=== PATIENT | male | born 1965 | race Caucasian/White ===

== ENCOUNTER 2021-08-06 00:37 | Day surgery (SDC) | payer MEDICARE, SELFPAY ==
[2021-08-05 11:18] VITALS: BMI 27.5
--- NOTE | 2021-08-06 07:10 | P.PNAN_ITS ---
Anes - Initial Pre Proc Eval Procedure: Operation Date: 08/06/21 10:30 Proposed Procedures p Colonoscopy - Andrés Larson MD Date/Time: 08/06/21 07:10 Surgeon: Andrés Larson MD Pre Op Diagnosis: positive cologuard Patient Data Age: 56 Gender: M Height: 1.78 m Weight: 87 kg Allergies Allergy/AdvReac Type Severity Reaction Status Date / Time No Known Allergies Allergy Verified 08/06/21 09:27 Home Medications Medication Instructions Recorded Confirmed Type carbamide peroxide 6.5 % ear drops 4 drp EACH EAR DAILY PRN 06/08/21 08/04/21 History ethosuximide 250 mg capsule 250 mg PO BID 06/08/21 08/04/21 History multivit,Ca,min-iron 8 mg-folic 1 tablet PO DAILY tablet 06/08/21 08/04/21 History acid 200 mcg-lycopene 600 mcg tablet phenytoin sodium extended 100 mg 100 mg PO BID cap 06/08/21 08/04/21 History capsule metoprolol succinate 25 mg 25 mg PO DAILY #90 tablet 07/29/21 08/04/21 Rx tablet,extended release 24 hr acetaminophen [Mapap 650 mg PO Q6H PRN 08/04/21 08/04/21 History (acetaminophen)] calcium carbonate [Oyster Shell 500 mg PO DAILY 08/04/21 08/04/21 History Calcium 500] dicyclomine 20 mg PO QID 08/04/21 08/04/21 History loperamide 2 mg PO BID PRN 08/04/21 08/04/21 History phenobarbital 32.4 mg PO HS MDD seizure 08/04/21 08/04/21 History Patient hx anesthesia problems: none Family hx anesthesia problems: none Results Review: All pre-operative results and documents have been reviewed as part of the pre-operative evaluation. [facility] Past Medical History Medical History (Updated 07/30/21 @ 10:08 by Radha Rees NP) Cerebral palsy Hip fracture, left Left spastic hemiparesis Seizure disorder Tachycardia Surgical History Surgical History (Updated 07/29/21 @ 23:52 by Adwoa Ramirez MD) Hx of colonoscopy 2019, repeat in 10 years S/P total hip arthroplasty Social History Social History (Updated 07/29/21 @ 14:12 by Radha Valdes Social History: Single Smoking status: Unknown if ever smoked Second hand tobacco smoke exposure: No Alcohol intake: never Substance use: never Substance use type: does not use Living arrangements: assisted living Gender identity (if verbalized by the patient): Male Sexual Orientation (if Verbalized by the Patient): Straight or Heterosexual Spiritual care concerns: No Anes - Eval Final PreProcedure Day of Procedure 08/06/21 07:10 Patient weight: overweight Heart: regular rate and rhythm Lungs: clear to auscultation and normal air movement Airway: Mallampati scale class II Neurological: alert and oriented Last oral intake: >/= 8 hours ASA classification: III Emergent: no Anesthetic plan: proceed Anesthesia type and monitoring: general GIVS and standard monitoring Results Review: All pre-operative results and documents have been reviewed as part of the pre-operative evaluation. Informed Consent: The patient's anesthetic plan and its attendant risks and benefits were discussed with the patient/family/POA. Questions were solicited and answers provided to the satisfaction of the patient/family/POA.
[2021-08-06] MEDS: LACTATED RINGERS 1,000 ML 150 ML IV CONT (09:22)
[2021-08-06 09:29] VITALS: BP 117/85; PULSE 92; RESP 18; TEMP 36.6; O2SAT 97
--- NOTE | 2021-08-06 09:29 | WPDGICN ---
Assessment and Plan Assessment and plan (1) Positive colorectal cancer screening using Cologuard test: Code(s): R19.5 - Other fecal abnormalities Status: Acute Assessment and Plan: Patient with a recent Cologuard test that was positive. Plan to proceed with colonoscopy because of this. Further recommendations will be given after endoscopy. (2) Left spastic hemiparesis: Code(s): G81.14 - Spastic hemiplegia affecting left nondominant side Status: Acute (3) Cerebral palsy: Qualifiers: Cerebral palsy type: spastic hemiplegic Qualified Code(s): G80.2 - Spastic hemiplegic cerebral palsy Code(s): G80.9 - Cerebral palsy, unspecified Status: Acute GI Consult Note Consult date/time: 08/06/21 09:29 HPI: Luisito Peraza is a 56 year old male Presents for screening colonoscopy. Patient was recently found to have positive Cologuard test. Patient does have a past medical history of cerebral palsy. He has underlying spastic hemiparesis. Patient is unable to give a good history. He does have an underlying seizure disorder as well. Patient had a colonoscopy previously 2014 felt to be unremarkable. He has had a previous hip arthroplasty. Review of Systems Review of Systems: ROS unobtainable: Yes unobtainable due to medical condition PMFSH Past Medical History Medical History (Updated 07/30/21 @ 10:08 by Radha Rees NP) Cerebral palsy Hip fracture, left Left spastic hemiparesis Seizure disorder Tachycardia Surgical History Surgical History (Updated 07/29/21 @ 23:52 by Adwoa Ramirez MD) Hx of colonoscopy 2019, repeat in 10 years S/P total hip arthroplasty Social History Social History (Updated 07/29/21 @ 14:12 by Radha Muniz) Social History: Single Smoking status: Unknown if ever smoked Second hand tobacco smoke exposure: No Alcohol intake: never Substance use: never Substance use type: does not use Living arrangements: assisted living Gender identity (if verbalized by the patient): Male Sexual Orientation (if Verbalized by the Patient): Straight or Heterosexual Spiritual care concerns: No Meds Home Medications and Allergies Home Medications Medication Instructions Recorded Confirmed Type carbamide peroxide 6.5 % ear drops 4 drp EACH EAR DAILY PRN 06/08/21 08/06/21 History ethosuximide 250 mg capsule 250 mg PO BID 06/08/21 08/06/21 History multivit,Ca,min-iron 8 mg-folic 1 tablet PO DAILY tablet 06/08/21 08/06/21 History acid 200 mcg-lycopene 600 mcg tablet phenytoin sodium extended 100 mg 100 mg PO BID cap 06/08/21 08/06/21 History capsule metoprolol succinate 25 mg 25 mg PO DAILY #90 tablet 07/29/21 08/06/21 Rx tablet,extended release 24 hr acetaminophen [Mapap 650 mg PO Q6H PRN 08/04/21 08/06/21 History (acetaminophen)] calcium carbonate [Oyster Shell 500 mg PO DAILY 08/04/21 08/06/21 History Calcium 500] dicyclomine 20 mg PO QID 08/04/21 08/06/21 History loperamide 2 mg PO BID PRN 08/04/21 08/06/21 History phenobarbital 32.4 mg PO HS MDD seizure 08/04/21 08/06/21 History Allergies Allergy/AdvReac Type Severity Reaction Status Date / Time No Known Allergies Allergy Verified 08/06/21 09:27 Exam Narrative: Physical exam reveals patient be alert not well oriented unable to give significant history. Vital signs are stable. HEENT exam reveals no icterus. Lungs are clear to auscultation and percussion. Heart is without murmur or extra sounds. Abdomen bowel sounds are present soft nontender with no organomegaly. Digital external rectal exam is normal.
[2021-08-06 10:20] VITALS: BP 109/74; PULSE 69; RESP 17; O2SAT 98
[2021-08-06 10:30] VITALS: BP 115/80; PULSE 87; RESP 18; O2SAT 100
[2021-08-06 10:40] VITALS: BP 124/82; PULSE 86; RESP 23; O2SAT 100
== END 2021-08-06 11:15 ==
PROVIDERS: PCP Family Medicine; Visit Provider Internal Medicine Gastroenterology
PROC: 0DJD8ZZ Inspection of Lower Intestinal Tract, Via Natural or Artificial Opening Endoscopic (ICD-10-PCS; CPT 45378; principal; 2021-08-06 10:30)
DX: R19.5 Other fecal abnormalities (principal); K63.5 Polyp of colon; G80.2 Spastic hemiplegic cerebral palsy; G40.909 Epilepsy, unspecified, not intractable, without status epilepticus
CPT/HCPCS: 45385; 88305; J2704; J7120

== ENCOUNTER 2025-01-05 09:46 | Emergency (ER) | payer MEDICARE, MEDICAID, SELFPAY ==
--- NOTE | ~2025-01-05 | XR_ITS ---
AP and lateral views of the sacrum/coccyx CLINICAL HISTORY: Pain FINDINGS: Moderate L3 compression fracture noted. No other fracture or dislocation seen. Right hip brian int space intact. Left hip arthroplasty in place. Soft tissues are unremarkable. SI joints are intact . IMPRESSION: Moderate L3 compression fracture, age-indeterminate. No other fracture or dislocation. Reviewed, dictated and finalized at [facility].
--- OUTSIDE RECORDS SUMMARY | 2025-01-05 09:49 | XMS_ITS | Clinical Summary ---
Author Organization [facility] Address [address] [place] [address] Phone Care Team Providers Care Client Solutions Director Name Role Phone Marbella Cooper APRN, CHARLIE Primary Care P rovider Allergies No known active allergies Medications acetaminophen (TYLENOL) 325 MG Tablet Take 650 mg by mouth. Active ethosuximide (ZARONTIN) 250 MG Capsule 3 Active metoprolol Succinate (TOPROL-XL) 25 MG TABLET SR 24 HR 3 Active Centrum Silver 50+Men Tablet 3 Active phenytoin (DILANTIN) 100 MG ER capsule 3 Active Probiotic Product (TruBiotics) Capsule 2 Active dicyclomine (BENTYL) 20 MG TabletIndications :Irritable bowel syndrome with diarrhea Take 1 Tablet by mouth 3 times daily. Dose at 0700, 1700 and 2100 270 Tablet 3 3 Active calcium oyster shell 500 MG Tablet TAKE (1) TABLET BY MOUTH DAILY. 7AM 90 Tablet 3 3 Active ofloxacin (FLOXIN) 0.3 % Solution Place 5 Drops in affected ear(s). 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 30 Tablet 5 5 Active doxycycline hyclate (VIBRAMYCIN) 100 MG Capsule Take 1 Capsule by mouth 2 times daily for 10 days. 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 undetermined as to focal or generalized 01/14/2021 Encounters Date Type Department Care Team Description 12/12/2024 10:30 AM CDT Office Visit [facility] [place] [address] [place] [phone] Brian Siegel, SAIDA Recurrent falls while walking (Primary Dx); Epilepsy undetermined as to focal or generalized (HCC); Chronic tympanomastoiditis, unspecified laterality; Abscess of back Discharge Disposition: Discharged to home or Selfcare 12/11/2024 9:28 AM CDT - 12/11/2024 1:50 PM CDT [facility] [address] [place] [address] Suman Araiza MD Weakness Discharge Disposition: Discharged to home or Selfcare 12/11/2024 Travel 10/17/2024 [facility] [address] [place] [phone] Marbella Cooper APRN, NASCAR DRIVER Referral 10/16/2024 Refill [facility] [place] [address] [place] [address] Ludwin Pena MD 10/16/2024 Telephone [facility] [address] [place] [address] [phone] Marbella Cooper APRN, NASCAR DRIVER 10/14/2024 Telephone [facility] [address] [place] [phone] Marbella Cooper APRN, NASCAR DRIVER Care Management 10/11/2024 Telephone [facility] [address] [place] [address] [phone] Marbella Cooper APRN, NASCAR DRIVER Advice Only; Labs Only from Last 3 Months Immunizations Immunization Administration Dates Next Due COVID-19, MRNA, LNP-S, BIVAL ENT , PFIZER, 30 MCG/0.3 ML (12+ Y/O) 04/26/2022 COVID-19, Mrna, Lnp-s, Pf, 50 mcg/0.5 mL 024,06/19/2023 Covid-19, Mrna, Lnp-s, Pf, 3 0 Mcg/0.3 Ml Dose (Pfizer) 05/19/2021,09/25/2020,09/05/2020 Covid-19, Mrna, Lnp-s, Pf, 3 0 Mcg/0.3 Ml Dose, Jasvir-sucrose (Pfizer nick top) 11/04/2021 Influenza Vaccine, Quadrivalent, PF 04/12/2023 Influenza, Seasonal, Injectable, Undefined 04/09,05/05/2013 Influenza, Trivalent, Adjuvanted, PF 04/03/2017 Influenza,Split Virus,Trivalent,Injectable,PF 04/17/2024 TDAP Vaccine 09/14/2010 Td Vaccine (preservative free) 09/11/2000 Social History Tobacco Use Types Packs/Day Years Used Date Smoking Tobacco: Never Smokeless Tobacco: Never Tobacco Cessation:Counseling Given: Not Answered Alcohol Use Standard Drinks/Week Comments Never 0 (1 standard drink = 0.6 oz pur e alcohol) Sexually Active Control Partners Comments Not Currently Sex and Gender Information Value Date Recorded Sex Assigned at Not on file Legal 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 Gender Identity Not on file Sexual Orientation Not on file Last Filed Vital Signs Vital Sign Reading Time Taken Comments Blood Pressure 116/72 12/12/2024 10:36 AM CDT Pulse 94 12/12/2024 10:36 AM CDT Temperature 37.2 C (98.9 F) 12/12/2024 10:36 AM CDT Respiratory Rate 18 12/12/2024 10:36 AM CDT Oxygen Saturation 93% 12/12/2024 10:36 AM CDT Inhaled Oxygen Concentration - - Weight 78 kg (172 lb) 12/12/2024 10:36 AM CDT Height 180.3 cm (5' 11) 12/11/2024 9:27 AM CDT Body Mass Index 23.99 12/11/2024 9:27 AM CDT Plan of Treatment Upcoming Encounters Date Type Department Care Team (Late st Contact Info) Description 01/14/2025 1:15 PM CDT Office Visit [facility] [address] [place] [address] Marbella Cooper APRN, NASCAR DRIVER [address] [place] [address] Korey Veliz MD [address] [place] [phone] 03/18/2025 8:00 AM CDT Lab [facility] [place] [address] [place] [phone] Lab, [facility] 03/25/2025 9:15 AM CDT Office Visit [facility] [place] [facility] [place] [address] [place] [phone] Marbella Cooper APRN, NASCAR DRIVER [address] [place], [place] [phone] Health Maintenance Due Date Last Done Comments Colonoscopy 2010 Immunochemical Fecal Occult Blood 2015 Pneumococcal Immunization (50+ years) (1 of 1 - PCV) 2015 Cologuard 01/19/2027 01/20/2024 Colorectal Cancer Screening 01/19/2027 Td Immunization Every 10 Years (Adults With 1 Tdap) 10/09/2034 10/09/2024, 09/14/2010, 09/11/2000 Respiratory Syncytial Virus (RSV) Immunization (Adult) (1 - 1-dose 75+ series) 2040 Hepatitis C Virus (HCV) Screening Completed 09/01/2023 PSA Discussion Completed 03/15/2024, 03/2024, 03/15/2023 Influenza Immunization Completed , 04/12/2023, 04/03/2017, Additional history exists SARS-COV-2 Immunization Completed 04/17/20 24, 06/19/2023, 04/26/2022, Additional history exists DTaP/Tdap/Td Immunization Discontinued 2024, 09/14/2010, 09/11/2000 Hepatitis B Immunization Discontinued 12/04/2024, 09/21 Zoster Immunization Completed 12/04/2024, Human Papillomavirus (HPV) Immunization Aged Out No longer eligible based on patient's age to complete this topic Meningococcal Immunization (ACWY) Aged Out No longer eligible based on patient's age to complete this topic Rotavirus Immunization Aged Out No lo nger eligible based on patient's age to complete this topic Procedures Procedure Name Priority Date/Time Associated Diagnosis Comments URINALYSIS REFLEX IF INDICATED BY ABNORMAL RESULTS STAT 12/11/2024 12:[address] CERVICAL SPINE WO/ CONTRAST Stat with Interpretation 12/11/2024 10:[address] HEAD OR BRAIN WO CONTRAST Stat with Interpretation 12/11/2024 10:25 AM CDT GOLD TOP TUBE STAT 12/11/2024 9:50 AM CDT CBC WITH AUTO DIFFERENTIAL STAT 12/11/2024 9:50 AM CDT EXTRA TUBES STAT 12/11/2024 9:50 AM CDT DILANTIN (PHENYTOIN) STAT 12/11/2024 9:50 AM CDT PHENOBARBITAL STAT 12/11/2024 9:50 AM CDT PROTIME (PT) (PROTHROMBIN TIME) STAT 12/11/2024 9:50 AM CDT TROPONIN I, HIGH SENSITIVITY (HSTRP) STAT 12/11/2024 9:50 AM CDT MAGNESIUM (MG) STAT 12/11/2024 9:50 AM CDT CMP (COMPREHENSIVE METABOLIC PANEL) STAT 12/11/2024 9:50 AM CDT COMPLETE BLOOD COUNT (CBC) WITH DIFF STAT 12/11/2024 9:50 AM CDT EKG 12 LEAD STAT 12/11/2024 9:37 AM CDT RHYTHM STRIP 12/11/2024 12:00 AM CDT EKG SCAN 12/11/2024 12:00 AM CDT RHYTHM STRIP 12/11/2024 12:00 AM CDT PSA SCREEN Routine 03/15/2024 2:09 PM CDT Elevated PSA, less than 10 ng/ml COLOGUARD Routine 01/20/2024 2:15 PM CDT Screening for colon cancer HEPATITIS C ANTIBODY Routine 09/01/2023 8:12 AM CLOTH MENDER Encounter for HCV screening test for low risk patient from Last 3 Months or Most Recently Relevant to Health Maintenance Results * (ABNORMAL) Urinalysis w/ Reflex (12/11/2024 12:00 PM CDT) SPECIFIC GRAVITY 1.015 1.003 - 1.030 12/11/2024 12:49 PM CDT [facility] URINE PH 6.5 5.0 - 9.0 12/11/2024 12:49 PM CDT [facility] WBC ESTERASE Negative Negative 12/11/2024 12:49 PM CDT [facility] NITRITE Negative Negative 12/11/2024 12:49 PM CDT [facility] PROTEIN, RANDOM URINE 30 mg/dL(A) Negative 12/11/2024 12:49 PM CDT [facility] URINE GLUCOSE, QUAL Negative Negative 12/11/2024 12:49 PM CDT [facility] URINE KETONES Negative Negative 12/11/2024 12:49 PM CDT [facility] UROBILINOGEN Normal Normal mg/dL 12/11/2024 12:49 PM CDT [facility] URINE BLOOD Negative Negative esther/ul 12/11/2024 12:49 PM CDT [facility] URINALYSIS COLOR Yellow 12/12/19 12:49 PM CDT [facility] URINALYSIS CLARITY Clear 12/11/2024 12:49 PM CDT [facility] WBC (Urine) 0-5 Negative, 0-5 /hpf 12/11/2024 12:49 PM CDT [facility] URINE RBC'S 0-2 Negative, 0-2 /hpf 12/11/2024 12:49 PM CDT [facility] EPITHELIAL CELLS Negative /lpf 12/12/19 12:49 PM CDT [facility] BACTERIA, URINE Negative Negative /hpf 12/11/2024 12:49 PM CDT [facility] Urine (Straight Catheter) Non-Phlebotomy Collection / Unknown 12/11/2024 12:00 PM CDT 12/11/2024 12:14 PM CDT us Suman Araiza MD URINE ORDERABLES Final Re sult [facility] [address] [place] [address] * CT CERVICAL SPINE WO/ CONTRAST (12/11/2024 10:25 AM CDT) Anatomical Region Laterality Modality Spine N/A Computed Tomogra phy 12/11/2024 11:5 2 AM CDT Impressions 12/11/2024 11:54 AM CDT IMPRESSION: Cervical spondylosis and degenerative disc disease. No acute fracture or subluxation. New large defect of the right mastoids compared to prior temporal bone CT study. This could represent interval large canal wall-down mastoidectomy, or could be related to a destructive process. Correlation with clinical history and clinical examination essential. Please see separate CT head report is findings better demonstrated on that examination. Left mastoid effusion, increased compared to previous examinations. Increased opacification within the left middle ear cavity compared to the prior examination. Intracranial findings, better appreciated on CT head from same day. See separate CT head report Narrative 12/11/2024 11:54 AM CDT EXAM DESCRIPTION: CT CERVICAL SPINE WO/ CONTRAST REASON FOR STUDY: mutiple falls over the last several days TECHNIQUE: Axial images through the cervical spine with sagittal and coronal reformatted images. Automated exposure control was used as a dose optimization technique for this examination. COMPARISON: None FINDINGS: ALIGNMENT: There is slight reversal of the cervical lordosis centered at C3-4. There is dextroconvex curvature, which may be in part positional. VERTEBRAE: The vertebral body heights appear relatively well maintained. Subtle sloping at the superior endplates of C4 and C7, chronic, likely related to underlying degenerative change. There is degenerative change about the anterior superior dens and the anterior arch of C1. The lateral masses of C1 are normal in alignment with respect to the occipital condyles. There is multi level endplate osteophyte formation within the cervical spine greatest from C4-5 through C6-7. Uncovertebral degenerative changes are noted at these levels. There are bilateral facet degenerative changes. DISCS: There is disc space narrowing greatest at C4-5, C5-6 and C6-7. HARDWARE: None in the spine. INDIVIDUAL DISC LEVELS: There is bilateral neural foraminal narrowing C3-4 and C4-5. There is some right neural foraminal narrowing at C5-6 and left neural foraminal narrowing at C6-7. UPPER THORACIC: Incompletely imaged. No significant osseous spinal stenosis or osseous neural foraminal stenosis. SKULL BASE: On the right, there is a new large defect at the mastoid. This may represent large canal wall-down mastoidectomy. Correlate with clinical history. This could also represent destructive process with soft tissue filling this region. This appearance could be seen with cholesteatoma. There is significant opacification involving the left mastoid air cells which has increased compared to the prior examination. Polypoid structure within the left external auditory canal, most likely cerumen. There is soft tissue attenuation adjacent to the ossicles within the middle ear, increased compared to the prior examination. LUNG APICES: Mild biapical pleuroparenchymal scarring and atelectasis. NECK SOFT TISSUES: There are scattered cervical nodes present. The thyroid gland appears grossly unremarkable. OTHER: Apparent encephalomalacia involving the right cerebral hemisphere as atrophy involving the cerebellar hemispheres, right greater than left. Please see separate head CT report for intracranial findings. THIS IS AN ELECTRONICALLY VERIFIED FINAL REPORT 12/11/2024 11:52 AM - Electronically signed by Stacy Matthews M.D. TW: ALFREDITO Report ID: [id number] Reading Location: [id number] Procedure Note Stacy Matthews MD - 12/11/2024 EXAM DESCRIPTION: CT CERVICAL SPINE WO/ CONTRAST REASON FOR STUDY: mutiple falls over the last several days TECHNIQUE: Axial images through the cervical spine with sagittal and coronal reformatted images. Automated exposure control was used as a dose optimization technique for this examination. COMPARISON: None FINDINGS: ALIGNMENT: There is slight reversal of the cervical lordosis centered at C3-4. There is dextroconvex curvature, which may be in part positional. VERTEBRAE: The vertebral body heights appear relatively well maintained. Subtle sloping at the superior endplates of C4 and C7, chronic, likely related to underlying degenerative change. There is degenerative change about the anterior superior dens and the anterior arch of C1. The lateral masses of C1 are normal in alignment with respect to the occipital condyles. There is multi level endplate osteophyte formation within the cervical spine greatest from C4-5 through C6-7. Uncovertebral degenerative changes are noted at these levels. There are bilateral facet degenerative changes. DISCS: There is disc space narrowing greatest at C4-5, C5-6 and C6-7. HARDWARE: None in the spine. INDIVIDUAL DISC LEVELS: There is bilateral neural foraminal narrowing C3-4 and C4-5. There is some right neural foraminal narrowing at C5-6 and left neural foraminal narrowing at C6-7. UPPER THORACIC: Incompletely imaged. No significant osseous spinal stenosis or osseous neural foraminal stenosis. SKULL BASE: On the right, there is a new large defect at the mastoid. This may represent large canal wall-down mastoidectomy. Correlate with clinical history. This could also represent destructive process with soft tissue filling this region. This appearance could be seen with cholesteatoma. There is significant opacification involving the left mastoid air cells which has increased compared to the prior examination. Polypoid structure within the left external auditory canal, most likely cerumen. There is soft tissue attenuation adjacent to the ossicles within the middle ear, increased compared to the prior examination. LUNG APICES: Mild biapical pleuroparenchymal scarring and atelectasis. NECK SOFT TISSUES: There are scattered cervical nodes present. The thyroid gland appears grossly unremarkable. OTHER: Apparent encephalomalacia involving the right cerebral hemisphere as atrophy involving the cerebellar hemispheres, right greater than left. Please see separate head CT report for intracranial findings. THIS IS AN ELECTRONICALLY VERIFIED FINAL REPORT 12/11/2024 11:52 AM - Electronically signed by Stacy Matthews M.D. TW: ALFREDITO Report ID: [id number] Reading Location: [id number] IMPRESSION: Cervical spondylosis and degenerative disc disease. No acute fracture or subluxation. New large defect of the right mastoids compared to prior temporal bone CT study. This could represent interval large canal wall-down mastoidectomy, or could be related to a destructive process. Correlation with clinical history and clinical examination essential. Please see separate CT head report is findings better demonstrated on that examination. Left mastoid effusion, increased compared to previous examinations. Increased opacification within the left middle ear cavity compared to the prior examination. Intracranial findings, better appreciated on CT head from same day. See separate CT head report us Suman Araiza MD [facility] [place] ORDERABLES Final R esult * CT HEAD OR BRAIN WO CONTRAST (12/11/2024 10:25 AM CDT) Anatomical Region Laterality Modality Head N/A Computed Tomogra phy 12/11/2024 11:4 6 AM CDT Impressions 12/11/2024 11:48 AM CDT IMPRESSION: 1. No overt CT evidence of acute intracranial process with constellation of findings as detailed above favored as chronic. 2. Correlate with clinical context to include prior relevant imaging for stability of these findings. Narrative 12/11/2024 11:48 AM CDT EXAM DESCRIPTION: CT HEAD WITHOUT CONTRAST REASON FOR STUDY: No provided patient complaints or provided history of closed head injury in a patient status post multiple falls from unspecified heights over the past several days. No provided history of inciting and/or aggravating events. No provided past medical or surgical history. TECHNIQUE: Axial images acquired through the brain without intravenous contrast. Images stored on PACS. Automated exposure control was used as a dose optimization technique for this examination. COMPARISON: No prior imaging available at time of interpretation. FINDINGS: BRAIN: No acute intra-axial hemorrhage. No edema, mass effect, acute midline shift, or herniation. No evidence of acute territorial ischemia or infarct. Extensive encephalomalacia with surrounding gliosis of the right cerebral architecture with ex vacuo dilatation of the right cerebral architecture. EXTRA-AXIAL SPACES: No extra-axial fluid collections. No unenhanced CT evidence of extra-axial, noting variable dural calcifications. There is cerebellar greater than cerebral volume loss. Correlate with clinical context. CALVARIUM: No acute calvarial fracture. Appearance of osteoma extending from the inner table of the right frontal bone versus bulky dystrophic ossification. Correlate with clinical context to include prior relevant imaging. SINUSES/MASTOIDS: Scattered opacification about the bilateral ethmoid air cells. Opacification of the visualized portion of the left maxillary sinuses. Left mastoid air cells well-developed with left mastoid effusion and extension of nonspecific opacifying material about the left middle ear cavity. Resection versus marked osseous destruction of the right mastoid air cells with opacification of the residual mastoid air cells and extending about the surrounding soft tissues with extension of nonspecific opacifying material into the right middle ear cavity. Debris in the [id number]-patt-right EACs. ORBITS: No acute abnormality. Ocular lenses and globes normal in conformation and position. OTHER: No other significant abnormality. THIS IS AN ELECTRONICALLY VERIFIED FINAL REPORT 12/11/2024 11:46 AM - Electronically signed by Jose Kline M.D. YADIRA: YADIRA Report ID: [id number] Reading Location: [id number] Procedure Note Jose Kline MD - 12/11/2024 EXAM DESCRIPTION: CT HEAD WITHOUT CONTRAST REASON FOR STUDY: No provided patient complaints or provided history of closed head injury in a patient status post multiple falls from unspecified heights over the past several days. No provided history of inciting and/or aggravating events. No provided past medical or surgical history. TECHNIQUE: Axial images acquired through the brain without intravenous contrast. Images stored on PACS. Automated exposure control was used as a dose optimization technique for this examination. COMPARISON: No prior imaging available at time of interpretation. FINDINGS: BRAIN: No acute intra-axial hemorrhage. No edema, mass effect, acute midline shift, or herniation. No evidence of acute territorial ischemia or infarct. Extensive encephalomalacia with surrounding gliosis of the right cerebral architecture with ex vacuo dilatation of the right cerebral architecture. EXTRA-AXIAL SPACES: No extra-axial fluid collections. No unenhanced CT evidence of extra-axial, noting variable dural calcifications. There is cerebellar greater than cerebral volume loss. Correlate with clinical context. CALVARIUM: No acute calvarial fracture. Appearance of osteoma extending from the inner table of the right frontal bone versus bulky dystrophic ossification. Correlate with clinical context to include prior relevant imaging. SINUSES/MASTOIDS: Scattered opacification about the bilateral ethmoid air cells. Opacification of the visualized portion of the left maxillary sinuses. Left mastoid air cells well-developed with left mastoid effusion and extension of nonspecific opacifying material about the left middle ear cavity. Resection versus marked osseous destruction of the right mastoid air cells with opacification of the residual mastoid air cells and extending about the surrounding soft tissues with extension of nonspecific opacifying material into the right middle ear cavity. Debris in the idvl-[id number]-krmv-right EACs. ORBITS: No acute abnormality. Ocular lenses and globes normal in conformation and position. OTHER: No other significant abnormality. THIS IS AN ELECTRONICALLY VERIFIED FINAL REPORT 12/11/2024 11:46 AM - Electronically signed by Jose Kline M.D. YADIRA: YADIRA Report ID: [id number] Reading Location: [id number] IMPRESSION: 1. No overt CT evidence of acute intracranial process with constellation of findings as detailed above favored as chronic. 2. Correlate with clinical context to include prior relevant imaging for stability of these findings. us Suman Araiza MD IMG CT ORDERABLES Final R esult * TROPONIN I, HIGH SENSITIVITY (HSTRP) (12/11/2024 9:50 AM CDT) [facility] TROPONIN I, HIGH SENSITIVITY- [place] <3 <=35 ng/L 12/11/2024 10:29 AM CDT [facility] Comment: High-sensitivity troponin I results are reported in ng/L making the result appear to be 1,000 times higher than the contemporary troponin I value which is reported in ng/ml. Results from [place]. Blood Venipuncture / Unknown 12/11/2024 9:50 AM CDT 12/11/2024 10:00 AM CDT Suman Araiza MD CHEMISTRY ORDERABLES Pooja l Result Performing Organization Address City/[facility] Co de Phone Number [facility] [address] [place] [address] * Gold Top Tube (12/11/2024 9:50 AM CDT) Blood No Phlebotomy Charged / Unknown 12/11/2024 9:50 AM CDT 12/11/2024 10:03 AM CDT Suman Araiza MD CHEMISTRY ORDERABLES Pooja l Result Performing Organization Address [facility]/ZIP Co de Phone Number [facility] [address] [place] [address] * (ABNORMAL) CBC with Auto Differential (12/11/2024 9:50 AM CDT) [facility] WBC 6.02 4.00 - 12.00 10(3)/mcL 12/11/2024 10:07 AM CDT [facility] RBC 4.60 4.40 - 5.80 10(6)/mcL 12/11/2024 10:07 AM CDT [facility] HEMOGLOBIN (HGB) 14.4 13.0 - 16.5 g/dL 12/11/2024 10:07 AM CDT [facility] HEMATOCRIT (HCT) 43.4 38.0 - 50.0 % 12/11/2024 10:07 AM CDT [facility] MCV 94.3 82.0 - 96.0 fL 12/11/2024 10:07 AM CDT [facility] MCH 31.3 26.0 - 32.0 pg 12/11/2024 10:07 AM CDT [facility] MCHC 33.2 31.0 - 36.0 g/dL 12/11/2024 10:07 AM CDT [facility] PLATELET COUNT 215 140 - 440 10(3)/mcL 12/11/2024 10:07 AM CDT [facility] RDW 12.1 11.8 - 15.5 % 12/11/2024 10:07 AM CDT [facility] MPV 9.0 8.0 - 12.6 fL 12/11/2024 10:07 AM CDT [facility] NEUTROPHILS 69.1(H) 40.0 - 68.0 % 12/11/2024 10:07 AM CDT [facility] LYMPHOCYTES 15.3(L) 19.0 - 49.0 % 12/11/2024 10:07 AM CDT [facility] MONOCYTES 12.1 3.0 - 13.0 % 12/11/2024 10:07 AM CDT [facility] EOSINOPHILS 2.7 0.0 - 8.0 % 12/11/2024 10:07 AM CDT [facility] BASOPHILS 0.8 0.0 - 1.0 % 12/11/2024 10:07 AM CDT [facility] ABSOLUTE NEUTROPHILS 4.16 1.40 - 5.30 10(3)/mcL 12/11/2024 10:07 AM CDT [facility] ABSOLUTE LYMPHOCYTES 0.92 0.90 - 3.30 10(3)/mcL 12/11/2024 10:07 AM CDT [facility] ABSOLUTE MONOCYTES 0.73 0.10 - 0.90 10(3)/mcL 12/11/2024 10:07 AM CDT [facility] ABSOLUTE EOSINOPHIL 0.16 0.00 - 0.50 10(3)/mcL 12/11/2024 10:07 AM CDT [facility] ABSOLUTE BASOPHILS 0.05 0.00 - 0.10 10(3)/mcL 12/11/2024 10:07 AM CDT [facility] NRBC PER 100 WBC 0 12/12/19 10:07 AM CDT [facility] Blood Venipuncture / Unknown 12/11/2024 9:50 AM CDT 12/11/2024 10:00 AM CDT us Suman Araiza MD HEMATOLOGY ORDERABLES Fin al Result [facility] [place] [address] * PT / INR (12/11/2024 9:50 AM CDT) PROTIME-PATIENT 13.8 11.6 - 14.8 sec 12/11/2024 10:33 AM CDT [facility] INR 1.1 0.9 - 1.2 12/11/2024 10:33 AM CDT [facility] Comment: Therapeutic Ranges INR = 2.0-3.0: Venous thromb, atrial fib, pul embolism, tissue heart valve, ami. INR = 2.5-3.5: Mechanical heart valve Critical value for INR is >/= 4.5 Blood Venipuncture / Unknown 12/11/2024 9:50 AM CDT 12/11/2024 10:00 AM CDT us Suman Araiza MD HEMATOLOGY ORDERABLES Fin al Result [facility] [place] [address] * (ABNORMAL) Phenobarbital (12/11/2024 9:50 AM CDT) PHENOBARBITAL 6.8(L) 10.0 - 40.0 mcg/mL 12/11/2024 10:27 AM CDT [facility] Blood Venipuncture / Unknown 12/11/2024 9:50 AM CDT 12/11/2024 10:00 AM CDT us Suman Araiza MD CHEMISTRY ORDERABLES Pooja l Result [facility] [place] [address] * Magnesium (12/11/2024 9:50 AM CDT) MAGNESIUM 2.1 1.6 - 2.6 mg/dL 12/11/2024 10:27 AM CDT [facility] Blood Venipuncture / Unknown 12/11/2024 9:50 AM CDT 12/11/2024 10:00 AM CDT us Suman Araiza MD CHEMISTRY ORDERABLES Pooja l Result Performing Organization Address City/[facility]/ZIP Co de Phone Number [facility] [place] [address] * Dilantin (Phenytoin) [id number] (12/11/2024 9:50 AM CDT) DILANTIN 18.7 10.0 - 20.0 mcg/mL 12/11/2024 10:27 AM CDT [facility] Blood Venipuncture / Unknown 12/11/2024 9:50 AM CDT 12/11/2024 10:00 AM CDT Suman Araiza MD CHEMISTRY ORDERABLES Pooja l Result [facility] [place] [address] * (ABNORMAL) CMP (12/11/2024 9:50 AM CDT) SODIUM 141 136 - 145 mmol/L 12/11/2024 10:27 AM CDT [facility] POTASSIUM 3.9 3.5 - 5.1 mmol/L 12/11/2024 10:27 AM CDT [facility] CHLORIDE 107 98 - 107 mmol/L 12/11/2024 10:27 AM CDT [facility] CO2, VENOUS 26 22 - 30 mmol/L 12/11/2024 10:27 AM CDT [facility] ANION GAP 11.9 <18.0 mmol/L 12/11/2024 10:27 AM CDT [facility] GLUCOSE 103(H) 70 - 99 mg/dL 12/11/2024 10:27 AM CDT [facility] BUN 10 8 - 26 mg/dL 12/11/2024 10:27 AM CDT [facility] CREATININE, BLOOD 0.76 0.70 - 1.30 mg/dL 12/11/2024 10:27 AM CDT [facility] BUN/CREATININE RATIO 13 12 - 20 ratio 12/11/2024 10:27 AM CDT [facility] TOTAL PROTEIN 7.1 6.0 - 8.0 g/dL 12/11/2024 10:27 AM CDT [facility] ALBUMIN 4.2 3.5 - 5.0 g/dL 12/11/2024 10:27 AM CDT [facility] A/G RATIO 1.4 1.0 - 2.2 12/11/2024 10:27 AM CDT [facility] CALCIUM 8.8 8.7 - 10.5 mg/dL 12/11/2024 10:27 AM CDT [facility] T BILI 0.3 0.2 - 1.2 mg/dL 12/11/2024 10:27 AM CDT [facility] SGOT (AST) 17 <43 U/L 12/11/2024 10:27 AM CDT [facility] SGPT (ALT) 17 <56 U/L 12/11/2024 10:27 AM CDT [facility] ALKALINE PHOSPHATASE 120 40 - 150 U/L 12/11/2024 10:27 AM CDT [facility] GFR, ESTIMATED >60 >=60 12/11/2024 10:27 AM CDT [facility] Comment: Creatinine Clearance is the preferred criteria for selecting drug dose adjustments in renally impaired patients. The GFR is provided as additional pertinent clinical information. GFR is reported in mL/min/1.73 sq m. Calculation based on the Chronic Kidney Disease Epidemiology Collaboration (CKD- EPI) equation refit without adjustment for race. GFR, EST. >60 >=60 025 10:27 AM CDT [facility] GFR, EST. NONAFRICAN >60 >=60 12/11/2024 10:27 AM CDT [facility] Blood Venipuncture / Unknown 12/11/2024 9:50 AM CDT 12/11/2024 10:00 AM CDT us Suman Araiza MD CHEMISTRY ORDERABLES Pooja l Result [facility] [address] [place] [address] * EKG 12 LEAD (12/11/2024 9:37 AM CDT) Ventricular Rate 89 BPM EXTERNAL EKG Atrial Rate 89 BPM EXTERNAL EKG P-R Interval 172 ms EXTERNAL EKG QRS Duration 78 ms EXTERNAL EKG Q-T Duration 336 ms EXTERNAL EKG QTC CALCULATION 408 ms EXTERNAL EKG P [place] 55 degrees EXTERNAL EKG R [place] 5 degrees EXTERNAL EKG T [place] 44 degrees EXTERNAL EKG 12/11/2024 9:37 AM CDT Impressions EXTERNAL EKG - 12/11/2024 10:30 PM CDT Normal sinus rhythm Normal ECG No previous ECGs available Confirmed by TARUN BURGER ([id number]) on 12/11/2024 10:30:05 PM Narrative Procedure Note Tarun Burger MD - 12/11/2024 IMPRESSION: Normal sinus rhythm Normal ECG No previous ECGs available Confirmed by TARUN BURGER ([id number]) on 12/11/2024 10:30:05 PM us Suman Araiza MD IMG ECG ORDERABLES Final Result Performing Organization Address City/[facility] Co de Phone Number EXTERNAL EKG * RHYTHM STRIP (12/11/2024 12:00 AM CDT) Only the most recent of2 resultswithin the time period is included. 12/11/2024 us Provider Scan IMG ECG ORDERABLES Final Result Performing Organization Address City/[facility]/ZIP Co de Phone Number RESULTING AGENCY * EKG SCAN (12/11/2024 12:00 AM CDT) 12/11/2024 us Provider Scan IMG ECG ORDERABLES Final Result Performing Organization Address City/[facility] de Phone Number RESULTING AGENCY * PSA SCREEN (03/15/2024 2:09 PM CDT) PSA SCREEN, TOTAL 1.18 <4.00 ng/mL 03/15/2024 4:13 PM CDT [facility] Blood Venipuncture / Unknown 03/15/2024 2:09 PM CDT 03/15/2024 2:09 PM CDT Narrative [facility] - 03/15/2024 4:13 PM CDT The ALINITY Total PSA assay is a Chemiluminescent Microparticle Immunoassay (CMIA) for the quantitative determination of total PSA (both free PSA and PSA complexed to [id number]) in human serum. Total PSA values obtained with different assay methods, including Kunz PSA assays, cannot be used interchangeably. Marbella Cooper APRN, CNP CHEMISTRY ORDER AVANI Final Result [facility] [address] [place] [address] * COLOGUARD (01/20/2024 2:15 PM CDT) Cologuard Negative Negative [facility] Comment: NEGATIVE TEST RESULT. A negative Cologuard result indicates a low likelihood that a colorectal cancer (CRC) or advanced adenoma (adenomatous polyps with more advanced pre-malignant features) is present. The chance that a person with a negative Cologuard test has a colorectal cancer is less than 1 in 1500 (negative predictive value >99.9%) or has an advanced adenoma is less than 5.3% (negative predictive value 94.7%). These data are based on a prospective cross-sectional study of 10,000 individuals at average risk for colorectal cancer who were screened with both Cologuard and colonoscopy. (Farheen Guzman. et al, N Engl J Med 2014;370(14):8494-9308) The normal value (reference range) for this assay is negative. COLOGUARD RE-SCREENING RECOMMENDATION: Periodic colorectal cancer screening is an important part of preventive healthcare for asymptomatic individuals at average risk for colorectal cancer. Following a negative Cologuard result, the [place] [employer] Society and U.S. Multi-Society Task Force screening guidelines recommend a Cologuard re-screening interval of 3 years. References: [place] [employer] Guideline for Colorectal Cancer Screening: https://www.cancer.org/cancer/fbcog-lujhua-onjvcq/evslkvuuh-orszwgfys-txeifqr/ acs-recommendations.html.; Sherman DK, Austin CR, Day LubinK, Colorectal Cancer Screening: Recommendations for Physicians and Patients from the U.S. Multi-Society Task Force on Colorectal Cancer Screening , Am J Gastroenterology 2017; 112:2098-7224. TEST DESCRIPTION: Composite algorithmic analysis of stool DNA-biomarkers with hemoglobin immunoassay. Quantitative values of individual biomarkers are not reportable and are not associated with individual biomarker result reference ranges. Cologuard is intended for colorectal cancer screening of adults of either sex, 45 years or older, who are at average-risk for colorectal cancer (CRC). Cologuard has been approved for use by the U.S. FDA. The performance of Cologuard was established in a cross sectional study of average-risk adults aged 50-84. Cologuard performance in patients ages 45 to 49 years was estimated by sub-group analysis of near-age groups. Colonoscopies performed for a positive result may find as the most clinically significant lesion: colorectal cancer [4.0%], advanced adenoma (including sessile serrated polyps greater than or equal to 1cm diameter) [20%] or non- advanced adenoma [31%]; or no colorectal neoplasia [45%]. These estimates are derived from a prospective cross-sectional screening study of 10,000 individuals at average risk for colorectal cancer who were screened with both Cologuard and colonoscopy. (Farheen Guzmán et al, N Engl J Med 2014;370(14):2012-7253.) Cologuard may produce a false negative or false positive result (no colorectal cancer or precancerous polyp present at colonoscopy follow up). A negative Cologuard test result does not guarantee the absence of CRC or advanced adenoma (pre-cancer). The current Cologuard screening interval is every 3 years. ([place] [employer] and U.S. Multi-Society Task Force). Cologuard performance data in a 10,000 patient pivotal study using colonoscopy as the reference method can be accessed at the following location: www.[employer]/results. Additional description of the Cologuard test process, warnings and precautions can be found at www.cologuard.com. Stool 01/20/2024 2:15 PM CDT 01/24/2024 10:17 AM CDT Marbella Cooper APRN, CNP BODY FLUIDS & S TOOLS ORDERABLES Final Result [employer] [place] [address] [place] [address], [employer] [address] [place] [address] * HEPATITIS C ANTIBODY (09/01/2023 8:12 AM CLOTH MENDER) hepatitis C antibody 0.07 <1 S/[facility] [id number] B 09/01/2023 11:32 PM CLOTH MENDER [facility] Comment: Signal/Cutoff ratio < 0.79 is Nondetected Signal/Cutoff ratio 0.80-0.99 is Grayzone Signal/Cutoff ratio > 0.99 is Detected Supplemental assays are recommended if signal/cutoff ratio is >/=1.00. Signal/cutoff ratio result >/= 5.00 is 97% predictive of positivity for recombinant immunoblot assay (RIBA) and will be reported to the [place] Department of Public Health as required. Blood Venipuncture / Unknown 09/01/2023 8:12 AM CLOTH MENDER 09/01/2023 8:12 AM CLOTH MENDER Marbella Cooper APRN, CNP CHEMISTRY ORDER AVANI Final Result Performing Organization Address City/State/[facility] Co de Phone Number [facility] [address] [place] [address], from Last 3 Months or Most Recently Relevant to [place] [id number] MEDICARE C [facility] Care Teams Client Solutions Director Relationship Specialty Start Date End Date Marbella Cooper APRN, [employer] [address] [place] [address] PCP - General Advanced Practice Nurse 09/06/22
--- OUTSIDE RECORDS SUMMARY | 2025-01-05 09:49 | XMS_ITS ---
Author Name Auto Generated, Auto Generated Organization [employer] [employer] Address [address] [place] [address] Phone [phone] Care Team Providers Care Videogame Tester Name Role Phone Ousmane Gonzalez Unavailable [phone] Radha Unavailable [phone] Cara Montalvo Unavailable Functional Status No Results Mental Status No Results Allergies and Intolerances Name Onset Date Reaction Severity No Known Allergies (Allergy) MonApr 05 22:41:00 EDT 2017 Medications Medication Directions Start Date End Date Fluad 65yr up(PF)45 mcg(15 mcgx3)/0.5 mL intramuscular syringe 0.5ml SYRINGE (ML) Intramuscular 1 Time Daily for 1 Day document lot # and exp date [facility] May 12 11:30:00 EDT 2017May 13 11:29:00 EDT 2017 Debrox 6.5 % ear drops 4 drops DROPS Bot h Ears PRN Every 1 Day Dx: Cerumen Impaction MonApr 12 10:00:00 EDT 2017May 14 01:00:00 EDT 2017 acetaminophen 325 mg tablet 2 tablets TABLET Oral PRN Every 6 Hours MonApr 05 01:00:00 EDT 2017May 14 01:00:00 EDT 2017 Oyster Shell Calcium 500 500 mg calcium (1,250 mg) tablet 1 TABLET Oral 1 Time Daily for 60 Days MonApr 06 01:00:00 ED2017May 14 01:00:00 EDT 2017 divalproex 250 mg tablet,delayed release 1 TABLET TABLET, DELAYED RELEASE (ENTERIC COATED) Oral Every 12 Hours for 30 Days MonApr 06 01:00:00 EDT 2017Apr 06 19:22:00 EDT 2017 docusate sodium 100 mg capsule 1 CAPSULE CAPSULE Oral 2 Times Daily for 30 Days MonApr 06 01:00:00 ED2017May 06 00:59:00 ED2017 enoxaparin 30 mg/0.3 mL subcutaneous syringe 0.3ML SYRINGE (ML) Subcutaneous Every 12 Hours for 23 Days Mon 14 :00:00 ED2017Apr 29:59:00 ED2017 famotidine 20 mg tablet 1 TABLET TABLET Oral Every 12 Hours for 30 Days Mon 14 :00:2017May 06:59:00 ED2017 HYDROcodone 5 mg-acetaminophen 325 mg tablet 1 TABLET TABLET Oral PRN Every 4 Hours MonApr 06:00:00 ED2017May 14:00:00 ED2017 ethosuximide 250 mg capsule 1 CAPSULE CAPSULE Oral 2 Times Daily MonApr 06::2017May 14::00 ED2017 Multi-Day tablet 1 TABLET TABLET Oral 1 Time Daily MonApr 06:00:00 2017May 14:00:00 ED2017 PHENobarbital 32.4 mg tablet 32.4 mg 1 TABLET TABLET Oral 1 Time Daily MonApr 06:00:00 2017May 14:00:00 ED2017 phenytoin sodium extended 100 mg capsule 1 CAPSULE CAPSULE Oral 2 Times Daily MonApr 06:00:2017May 14:00:00 ED2017 TUBErsol 5 tub. unit/0.1 mL intradermal injection solution 0.1 ml VIAL (ML) Intradermal 1 Time Weekly for 2 Weeks (PPD) 1st injection upon admission. Read between 48 and 72 hours and give 2nd injection 1 week after the 1st if result is negative. If positive result, proceed with chest x-ray to rule out active disease. MonApr 06 01:00:00 ED2017Apr 20:59:00 ED2017 TUBErsol 5 tub. unit/0.1 mL intradermal injection solution Read Results VIAL (ML) Other 1 Time Weekly for 2 Weeks Read results between 48-72 hours after 1st and 2nd 1 week apart. If positive do chest x-ray to rule out active disease. MonApr 09 13:00:00 ED2017Apr 23 12:59:00 ED2017 Problems Active Concerns * Fracture of unspecified part of neck of left femur, subsequent encounter for closed fracture with routine healing* Code: * Start Date: MonApr 05 00:00:00 EDT 2017 * End Date: * Text: * Epilepsy, unspecified, not intractable, without status epilepticus* Code: * Start Date: MonApr 05 00:00:00 EDT 2017 * End Date: * Text: * Cerebral palsy, unspecified* Code: * Start Date: MonApr 05 00:00:00 EDT 2017 * End Date: * Text: * Presence of left artificial hip joint* Code: * Start Date: MonApr 05 00:00:00 EDT 2017 * End Date: * Text: * Gastro-esophageal reflux disease without esophagitis* Code: * Start Date: MonApr 05 00:00:00 EDT 2017 * End Date: * Text: * Abnormal results of liver function studies* Code: * Start Date: MonApr 05 00:00:00 EDT 2017 * End Date: * Text: * Encounter for immunization* Code: * Start Date: MonApr 05 00:00:00 EDT 2017 * End Date: * Text: Reason for Referral Past Medical History
--- OUTSIDE RECORDS SUMMARY | 2025-01-05 09:49 | XMS_ITS | Clinical Summary ---
Author Organization [facility] Address [facility] [place] [address] Care Team Providers Care Volleyball Assistant Coach Name Role Phone Marbella Cooper NP Primary Care Provide r Allergies No known active allergies Medications ethosuximide (ZARONTIN) 250 mg capsule Take 1 capsule (250 mg total) by mouth 2 (two) times a day 1 Active metoprolol XL (TOPROL-XL) 25 mg extended release tablet Take 1 tablet (25 mg total) by mouth every morning 1 Active PHENobarbitaL (LUMINAL) 32.4 mg tablet Take 1 tablet (32.4 mg total) by mouth nightly 1 Active phenytoin ER (DILANTIN) 100 mg ER capsule Take 1 capsule (100 mg total) by mouth 3 (three) times a day 1 Active dicyclomine (BENTYL) 20 mg tablet Take 1 tablet (20 mg total) by mouth 3 (three) times a day 4 Active Centrum Silver Ultra Men's 291-50-195-300 mcg tablet Take 1 tablet by mouth daily 4 Active Oyster Shell Calcium 500 500 mg calcium (1,250 mg) tablet Take 1 tablet (1,250 mg total) by mouth every morning 4 Active Probiotic Blend 2 billion cell-50 mg capsule Take 2 capsules by mouth every morning 4 Active ibuprofen (ADVIL,MOTRIN) 600 mg tablet Take 1 tablet (600 mg total) by mouth every 6 (six) hours 5 Active ofloxacin (FLOXIN) 0.3 % otic solution Administer 5 drops into the right ear daily 10 mL 5 Active HYDROcodone-david taminophen (NORCO) 5-325 mg per tabletIndicatio ns:Pain Take 1 tablet by mouth every 4 (four) hours as needed (1 tablet every 4 hours as needed for pain) 15 tablet 5 Active Active Problems Problem Noted Date Diagnosed Date Chronic mastoiditis of right side 07/31/2024 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 Nunez as scheduled for Right chronic tympanomastoiditis Assessment & Plan (08/22/2023 3:18 PM SHEET METAL ROOFER): Continue ear drops to the right ear CT temporal bone Referral to Otology based on CT findings, Dr. Nunez Otorrhea of right ear 07/10/2023 Assessment & Plan (08/22/2023 3:19 PM SHEET METAL ROOFER): Continue ear drops to the right ear CT temporal bone Referral to Otology based on CT findings, Dr. Nunez Assessment & Plan (08/05/2023 11:28 AM SHEET METAL ROOFER): Restart Ciprodex drops to right ear 7 drops into Right EAR, NOT EYE, twice daily for 14 days Ciprofloxacin 500 mg by mouth twice daily for 14 days Follow up in 2-[address] temporal bone if no improvement Assessment & Plan (07/10/2023 12:30 PM SHEET METAL ROOFER): Ciprofloxacin 7 drops into RIGHT EAR, NOT EYE, twice daily for 10 days Avoid ear cleaning techniques Avoid water to ears Follow up in 3 weeks for recheck How to Use Ear Drops discussed and Handout provided Chronic diffuse otitis externa of right ear 06/23 Assessment & Plan (08/04/2023 10:43 AM SHEET METAL ROOFER): Restart Ciprodex drops to right ear 7 drops into Right EAR, NOT EYE, twice daily for 14 days Ciprofloxacin 500 mg by mouth twice daily for 14 days Follow up in 2-3 weeks Assessment & Plan (07/10/2023 10:16 AM SHEET METAL ROOFER): Ciprofloxacin 7 drops into RIGHT EAR, NOT EYE, twice daily for 10 days Avoid ear cleaning techniques Avoid water to ears Follow up in 3 weeks for recheck How to Use Ear Drops discussed and Handout provided Consider round of oral antibiotics if no improvement at follow up Impacted cerumen, bilateral 07/10/2023 Assessment & Plan (07/10/2023 12:30 PM SHEET METAL ROOFER): Cleared today Epilepsy undetermined as to focal or generalized 01/14/2021 Encounters Date Type Department Care Team Description 12/23/2024 8:00 AM CDT Office Visit [facility] ENT [address] [facility] [place] [address]th [place] [address] [place] [address] Remi Christopher MD Chronic tympanomastoiditis of right side (Primary Dx); Otorrhea of right ear; Impacted cerumen, bilateral from Last 3 Months Immunizations Immunization Administration Dates Next Due Influenza, Quadrivalent, Spl it, Preservative Free, Intramuscular 04/12/2023 Influenza, Trivalent, Adjuvanted, Intramuscular 04/03/2017 Influenza, Trivalent, IM (MDV) 04/09/2014,2012 TD Preservative Free 09/11/2000 Tdap 09/14/2010 Medical History Medical History Date Comments Urinary incontinence Cerebral palsy (HCC) Gait difficulty Chronic right mastoiditis Chronic tympanomastoiditis, right Epilepsy (HCC) Otorrhea of right ear Social History Tobacco Use Types Packs/Day Years Used Date Smoking Tobacco: Never Smokeless Tobacco: Never Tobacco Cessation:Counseling Given: Not Answered [facility] Utilities Answer Date Recorded In the past 12 months has [employer], gas, oil, or water company threatened to shut off services in your home? No 08/01/2024 Social Connection and Isolation Panel [NHANES] A nswer Date Recorded In a typical week, how many times do you talk on the phone with family, friends, or neighbors? Patient unable to answer 08/01/2024 How often do you get togethe r with friends or relatives? Patient unable to answer 08/01/2024 How often do you attend chur ch or worship services? Never 08/01/2024 Do you belong to any clubs o r organizations such as bahai groups, unions, fraternal or athletic groups, or school groups? No 08/01/2024 How often do you attend meet ings of the clubs or organizations you belong to? Never 08/01/2024 Are you , , di vorced, , never , or living with a partner? Never 08/01/2024 AUDIT-C Answer Date Recorded Q1: How often do you have a drink containing alc ohol? Never 07/31/2024 Average Number of Drinks Not on file 025 Frequency of Binge Drinking Not on file 02/2025 Overall Financial Resource Strain (CARDIA) Answe r Date Recorded How hard is it for you to pa y for the very basics like food, housing, medical care, and heating? Not hard at all 08/01/2024 Hunger Vital Sign Answer Date Recorded Within the past 12 months, y ou worried that your food would run out before you got the money to buy more. Never true 08/01/19 25 Within the past 12 months, t he food you bought just didn't last and you didn't have money to get more. Never true 08/01/2024 PRAPARE - Transportation Answer Date Re corded In the past 12 months, has l ack of transportation kept you from medical appointments or from getting medications? No 03/2025 In the past 12 months, has l ack of transportation kept you from meetings, work, or from getting things needed for daily living? No 08/01/2024 Housing Stability Vital Sign Answer Greg e Recorded In the last 12 months, was t here a time when you were not able to pay the mortgage or rent on time? No 08/01/2024 In the past 12 months, how m any times have you moved where you were living? 0 08/01/2024 At any time in the past 12 m [facility], were you homeless or living in a jail (including now)? No 08/01/2024 Personal Safety Answer Date Recorded Have you ever been in or are you currently in a harmful physical or emotional relationship or is someone making you feel afraid or unsafe? Denies 07/31/2024 Sex and Gender Information Value Date Recorded Sex Assigned at Not on file Legal Sex Male 7:51 AM SHEET METAL ROOFER Gender Identity Not on file Sexual Orientation Not on file Obstetrics History Last Filed Vital Signs Vital Sign Reading Time Taken Comments Blood Pressure 116/74 08/01/2024 7:13 AM SHEET METAL ROOFER Pulse 91 08/01/2024 7:13 AM SHEET METAL ROOFER Temperature 36.7 C (98.1 F) 08/01/2024 7:13 AM SHEET METAL ROOFER Respiratory Rate 19 08/01/2024 7:13 AM SHEET METAL ROOFER Oxygen Saturation 98% 08/01/2024 7:13 AM SHEET METAL ROOFER Inhaled Oxygen Concentration - - Weight 76.6 kg (168 lb 14.4 oz) 12/23/2024 8:00 AM CDT Height 177.8 cm (5' 10) 07/31/2024 6:17 AM SHEET METAL ROOFER Body Mass Index 24.23 07/31/2024 6:17 AM SHEET METAL ROOFER Plan of Treatment Health Maintenance Due Date Last Done Comments Colon Cancer Screening-Colonoscopy 1965 Depression Screening 1965 Hepatitis C Screening 1965 Prostate Cancer Screening-PSA 1965 Hepatitis B Screening 1983 Regular Well Visit/Exam 18-64 1983 Zoster Vaccine (1 of 2) 2015 DTaP/Tdap/Td Vaccine (2 - Td or Tdap) 09/14/2020 09/14/2010, 09/11/2000 Covid-19 Vaccine ( season) 2024 05/19/2021, 09/25/2020, 09/05/2020 Influenza Vaccine Completed 04/17/2024, , 04/03/2017, Additional history exists Pneumococcal vaccine <65 Aged Out No longer eligible based on patient's age to complete this topic Insurance UHC MEDICARE ADVANTAGE [place] [id number] UHC MEDICARE ADVANTAGE [place] [id number] [place] [address] UHC MEDICARE ADVANTAGE [facility] MEDICARE Address: [address] [address] [place] [address] [employer] Advance Directives For more information, please contact: [phone] Documents on File Type Date Recorded Patient Audit Practice Intern Expl anation ADVANCE DIRECTIVE 07/11/2024 11:52 AM * Full Code (Latest Code Status on File) Date Activated Date Inactivated Comments 07/31/2024 12:45 PM 08/01/2024 5:44 PM Care Teams Volleyball Assistant Coach Relationship Specialty Start Date End Date Marbella Cooper NP [address] [place] [address] PCP - General Emergency Medicine 01/17/23
--- OUTSIDE RECORDS SUMMARY | 2025-01-05 09:50 | XMS_ITS | Encounter Summary ---
Author Organization [facility] Address [address] [place] [address] Phone Care Team Providers Care Machine Deburrer Name Role Phone Marbella Cooper APRN, CNP Primary Care P rovider Reason for Visit * Reason Comments Medication Refill Encounter Details Date Type Department Care Team (Late st Contact Info) Description 09/12/2022 Refill [facility] - Primary Care - [place] [address] [place] [phone] Marbella Cooper APRN, CNP [address] [place] [address] Medication Refill Social History Tobacco Use Types Packs/Day Years Used Date Smoking Tobacco: Never Smokeless Tobacco: Never Alcohol Use Standard Drinks/Week Comments Never 0 (1 standard drink = 0.6 oz pur e alcohol) Sex and Gender Information Value Date Recorded Sex Assigned at Not on file Legal Sex Male 7:[address] VENDOR Gender Identity Not on file Sexual Orientation Not on file COVID-19 Exposure Response Date Recorded In the last 10 days, have yo u been in contact with someone who was confirmed or suspected to have Coronavirus/COVID-19? No / Unsure 09/06/2022 7:[address] documented as of this encounter Miscellaneous Notes * Telephone Encounter - Mya Will RN - 09/12/2022 12:11 PM CST Medication failed the protocol, provider to review and approve the medication order if appropriate. Requested Prescriptions Pending Prescriptions Disp Refills calcium oyster shell 500 MG Tablet [Pharmacy Med Name: OYSTER SHELL CALCIUM 500 MG TB] 31 Tablet 0 Sig: TAKE (1) TABLET BY MOUTH DAILY. 7AM Minerals Calcium Supplementation Protocol Failed - 09/12/2022 12:07 PM Failed - Calcium on record in past 12 months No results found for: CALCIUM Failed - Vitamin D on record in past 12 months No results found for: VTMD Passed - Visit with relevant provider in past 12 months or upcoming 90 days Recent Visits Date Type Provider Dept 09/06/22 Office Visit Marbella Cooper APRN, ADVANCED PRACTICE PSYCHIATRIC NURSE [facility] Showing recent visits within past 365 days and meeting all other requirements Future Appointments No visits were found meeting these conditions. Showing future appointments within next 90 days and meeting all other requirements ET VENDOR * Telephone Encounter - Mya Will RN - 09/12/2022 12:09 PM CST Last prescribed by Marce Ramirez MD Quantity 30. 30 day supply. ET VENDOR documented in this encounter Plan of Treatment Upcoming Encounters Date Type Department Care Team (Late st Contact Info) Description 01/14/2025 1:15 PM CDT Office Visit [facility] [address] [place] [phone] Marbella Cooper APRN, ADVANCED PRACTICE PSYCHIATRIC NURSE [address] [place] [address] Korey Veliz MD [address] [place] [address] 03/18/2025 8:[address] [facility] - [facility] - [place] [address] [place] [address] [facility] 03/25/2025 9:15 AM CDT Office Visit [facility] - Primary Care - [place] [address] [place] [address] Marbella Cooper APRN, ADVANCED PRACTICE PSYCHIATRIC NURSE [address] [place] [address] documented as of this encounter Visit Diagnoses Not on filedocumented in this encounter Care Teams Machine Deburrer Relationship Specialty Start Date End Date Marbella Cooper APRN, ADVANCED PRACTICE PSYCHIATRIC NURSE [address] [place] [address] PCP - General Advanced Practice Nurse 09/06/22 documented as of this encounter
--- OUTSIDE RECORDS SUMMARY | 2025-01-05 09:50 | XMS_ITS | Referral Summary ---
Author Organization [facility] Address [address] [place] [address] Care Team Providers Care Hydrographer Name Role Phone Marbella Cooper NP Primary Care Provide r Encounters Date Type Department Care Team Description 12/23/2024 8:00 AM CDT Office Visit [facility] ENT [address] [facility] [address] [place] [address] [place] [address] Remi Christopher MD Chronic tympanomastoiditis of right side (Primary Dx); Otorrhea of right ear; Impacted cerumen, bilateral from Last 3 Months Allergies No known active allergies Medications ethosuximide [...] day 4 Active Centrum Silver Ultra Men's 119-09-825-300 mcg tablet Take 1 tablet by mouth [...] tympanomastoiditis Assessment & Plan (08/22/2023 3:18 PM FACULTY ADMINISTRATOR): Continue ear drops to the right ear CT temporal bone Referral to Otology based on CT findings, Dr. Nunez Otorrhea of right ear 07/10/2023 Assessment & Plan (08/22/2023 3:19 PM FACULTY ADMINISTRATOR): Continue ear drops to the right ear CT temporal bone Referral to Otology based on CT findings, Dr. Nunez Assessment & Plan (08/05/2023 11:28 AM FACULTY ADMINISTRATOR): Restart Ciprodex drops to right ear 7 drops into Right EAR, NOT EYE, twice daily for 14 days Ciprofloxacin 500 mg by mouth twice daily for 14 days Follow up in 2-[address] temporal bone if no improvement Assessment & Plan (07/10/2023 12:30 PM FACULTY ADMINISTRATOR): Ciprofloxacin 7 drops into RIGHT EAR, NOT EYE, twice daily for 10 days Avoid ear cleaning techniques Avoid water to ears Follow up in 3 weeks for recheck How to Use Ear Drops discussed and Handout provided Chronic diffuse otitis externa of right ear 06/23 Assessment & Plan (08/04/2023 10:43 AM FACULTY ADMINISTRATOR): Restart Ciprodex drops to right ear 7 drops into Right EAR, NOT EYE, twice daily for 14 days Ciprofloxacin 500 mg by mouth twice daily for 14 days Follow up in 2-3 weeks Assessment & Plan (07/10/2023 10:16 AM FACULTY ADMINISTRATOR): Ciprofloxacin 7 drops into RIGHT EAR, NOT EYE, twice daily for 10 days Avoid ear cleaning techniques Avoid water to ears Follow up in 3 weeks for recheck How to Use Ear Drops discussed and Handout provided Consider round of oral antibiotics if no improvement at follow up Impacted cerumen, bilateral 07/10/2023 Assessment & Plan (07/10/2023 12:30 PM FACULTY ADMINISTRATOR): Cleared today Epilepsy undetermined as to focal or generalized 01/14/2021 Immunizations Immunization Administration Dates Next Due Influenza, Quadrivalent, Spl it, Preservative Free, Intramuscular 04/12/2023 Influenza, Trivalent, Adjuvanted, Intramuscular 04/03/2017 Influenza, Trivalent, IM (MDV) 04/09/2014,2012 TD Preservative Free 09/11/2000 Tdap 09/14/2010 Social History Tobacco Use Types Packs/Day Years Used Date Smoking Tobacco: Never Smokeless Tobacco: Never Tobacco Cessation:Counseling Given: Not Answered [facility] Utilities Answer Date Recorded In the past 12 months has th e electric, gas, oil, or water company threatened to [...] often do you attend chur ch or roman catholic services? Never 08/01/2024 Do you belong to any clubs o r organizations such as evangelical groups, unions, fraternal or athletic groups, or [...] any time in the past 12 m [facility], were you homeless or living in a [place] [facility] facility (including now)? No 08/01/2024 Personal Safety Answer Date Recorded Have you ever been in or are you currently in a harmful physical or emotional relationship or is someone making you feel afraid or unsafe? Denies 07/31/2024 Sex and Gender Information Value Date Recorded Sex Assigned at Not on file Legal Sex Male 7:51 AM FACULTY ADMINISTRATOR Gender Identity Not on file Sexual Orientation Not on file Last Filed Vital Signs Vital Sign Reading Time Taken Comments Blood Pressure 116/74 08/01/2024 7:13 AM FACULTY ADMINISTRATOR Pulse 91 08/01/2024 7:13 AM FACULTY ADMINISTRATOR Temperature 36.7 C (98.1 F) 08/01/2024 7:13 AM FACULTY ADMINISTRATOR Respiratory Rate 19 08/01/2024 7:13 AM FACULTY ADMINISTRATOR Oxygen Saturation 98% 08/01/2024 7:13 AM FACULTY ADMINISTRATOR Inhaled Oxygen Concentration - - Weight 76.6 kg (168 lb 14.4 oz) 12/23/2024 8:00 AM CDT Height 177.8 cm (5' 10) 07/31/2024 6:17 AM FACULTY ADMINISTRATOR Body Mass Index 24.23 07/31/2024 6:17 AM FACULTY ADMINISTRATOR Plan of Treatment Not on file Insurance [facility] MEDICARE ADVANTAGE [facility] MED[facility] Address: [facility] [address] [place] [address] [facility]IC[facility] ADVANTAGE [facility] MEDIC[facility] Address: [address] [address] [place] [address] [employer] [facility] MEDICARE ADVANTAGE [employer] Advance Directives For more information, please contact: [phone] Documents on File Type Date Recorded Patient Finance Intern Expl anation ADVANCE DIRECTIVE 07/11/2024 11:52 AM * Full Code (Latest Code Status on File) Date Activated Date Inactivated Comments 07/31/2024 12:45 PM 08/01/2024 5:44 PM Care Teams Hydrographer Relationship Specialty Start Date End Date Marbella Cooper NP [address] [place] [address] PCP - General Emergency Medicine 01/17/23
--- OUTSIDE RECORDS SUMMARY | 2025-01-05 09:50 | XMS_ITS | Encounter Summary ---
Author Organization [facility] Address [address] [place] [address] Phone Care Team Providers Care Technical Support Consultant Name Role Phone Marbella Cooper APRN, CNP Primary Care P rovider Encounter Details Date Type Department Care Team (Late Contact Info) Description [facility] [address] [place] [address] Marbella Cooper APRN, PORTER US[employer] [address] [address] Social History Tobacco Use Types Packs/Day Years Used Date Smoking Tobacco: Never Smokeless Tobacco: Never Alcohol Use Standard Drinks/Week Comments Never 0 (1 standard drink = 0.6 oz pur e alcohol) Sex and Gender Information Value Date Recorded Sex Assigned at Not on file Legal Sex Male 7:19 PM MID TEACHER Gender Identity Not on file Sexual Orientation Not on file documented as of this encounter Plan of Treatment Upcoming Encounters Date Type Department Care Team ([facility] Contact Info) Description 01/14/2025 1:15 PM CDT Office Visit [facility] [address] [place] [address] Marbella Cooper APRN, PORTER US[address] [place] [address] Korey Veliz MD [address] [place] [address] 03/18/2025 8:00 AM CDT [facility] [address] [place] [phone] [facility] 03/25/2025 9:15 AM CDT Office Visit [facility] [address] [place] [phone] Marbella Cooper APRN, PORTER USED [address] [place] [address] documented as of this encounter Visit Diagnoses Not on filedocumented in this encounter Care Teams Technical Support Consultant Relationship Specialty Start Date End Date Marbella Cooper APRN, PORTER USED [address] [place] [address] PCP - General Advanced Practice Nurse 09/06/22 documented as of this encounter
--- OUTSIDE RECORDS SUMMARY | 2025-01-05 09:55 | XMS_ITS ---
Author Name Auto Generated, Auto Generated Organization [facility] Address [address] [place] [address] Phone [phone] Care Team Providers Care Commercial Appraiser Name Role Phone Ousmane Gonzalez Unavailable Bello Radha Unavailable [phone] Cara Montalvo Unavailable Functional Status No Results Mental Status No Results Allergies and Intolerances Name Onset Date Reaction Severity No Known Allergies (Allergy) MonApr 05 22:41:00 EDT 2017 Medications Medication Directions Start Date End Date Fluad 65yr up(PF)45 mcg(15 mcgx3)/0.5 mL intramuscular syringe 0.5ml SYRINGE (ML) Intramuscular 1 Time Daily for 1 Day document lot # and exp date [facility] May 12 11:30:00 EDT 2017May [...]
--- OUTSIDE RECORDS SUMMARY | 2025-01-05 09:55 | XMS_ITS ---
Author Name Auto Generated, Auto Generated Organization [facility] Address [address] [place] [address] Phone [phone] Care Team Providers Care Environmental Protection Officer Name Role Phone Ousmane Gonzalez Unavailable Radha Bello Unavailable [phone] Cara Montalvo Unavailable Functional Status Mental Status Allergies and Intolerances Medications Problems Reason for Referral Past Medical History
[2025-01-05 09:58] VITALS: BP 124/74; PULSE 97; RESP 20; TEMP 36.6; O2SAT 97
--- NOTE | 2025-01-05 10:05 | ED_ITS ---
HPI - Fall General Chief Complaint: Fall Stated Complaint: fall, tailbone is sore, cyst Source: patient Mode of arrival: ambulatory Limitations: no limitations History of Present Illness HPI Narrative: 59 y/o male with hx CP and seizures, presented with a caregiver [place] a jail after he fell in shower last night. Says he slipped and fell. Endorses tailbone pain and some right front hip pain. Pt has normal gait using walker. Denies pain radiating down the legs, numbness, tingling or weakness. Caregiver reports he has been dizzy in the past and is scheduled with Neuro this week, but currently denies dizziness. Denies hitting his head or LOC, denies dizziness prior to the fall. Tylenol last night. Pt's caregiver is also reporting a cyst to the right upper back. Pt was treated with abx 2 weeks ago, but says it is still draining and has an odor. Related Data Home Medications ?Medication ?Instructions ?Recorded ?Confirmed ?Last Taken ?Type calcium carbonate (Oyster Shell 500 mg PO DAILY 08/04/21 07/04/23 Unknown History Calcium 500) loperamide 2 mg capsule 2 mg PO TID PRN Diarrhea 06/27/22 07/04/23 Unknown History xvnzqznh-al-wydbt 300 mcg-K 60 tablet PO 01/05/25 Unknown History mcg-lycop 600 mcg-lutein 300 mcg tablet (Centrum Silver Ultra Men's) Allergies Allergy/AdvReac Type Severity Reaction Status Date / Time No Known Allergies Allergy Verified 01/05/25 10:06 Review of Systems Review of Systems: CONSTITUTIONAL: Denies body aches, fever, chills, or sweats. EYES: Denies visual changes, redness, or discharge. ENT: Denies rhinorrhea, congestion, sore throat, or otalgia. CARDIOVASCULAR: Denies chest pain, palpitations, or edema. RESPIRATORY: Denies cough or dyspnea. GASTROINTESTINAL: Denies abdominal pain, nausea, vomiting, or diarrhea. GENITOURINARY: Denies dysuria or hematuria. SKIN: reports cyst right upper back MUSCULOSKELETAL: reports tailbone pain NEUROLOGIC: Denies headache, numbness, tingling, or weakness. PSYCH: Denies depression or anxiety. All systems reviewed & are unremarkable except as noted in HPI and below PMFSH Past Medical History Medical History Cerebral palsy Hip fracture, left Left spastic hemiparesis Seizure disorder Tachycardia Surgical History Surgical History Hx of colonoscopy 2019, repeat in 10 years S/P total hip arthroplasty Social History Social History Social History: Single Smoking status: Never smoker Second hand tobacco smoke exposure: No Alcohol intake: never Substance use: never Substance use type: does not use Lack of Transportation: No Lack of Food: Never True Current Housing: I Have Housing Concerned About Future Housing: No Difficulty Paying Gas/Electric Bills: No Difficulty Paying for Meds: No Currently Unemployed: No Education: High School Diploma/GED Difficulty w/ Childcare or Family Care: No Living arrangements: assisted living Occupation/Education: occupation Gender identity (if verbalized by the patient): Male Sexual Orientation (if Verbalized by the Patient): Straight or Heterosexual Spiritual care concerns: No Comments At time of signature, I have reviewed and agree with nursing past medical, surgical, social and family history unless otherwise noted. Please see nursing chart for further information. There is no relevant family history pertinent to the presenting complaint Exam Narrative: GENERAL:chronically ill appearing; in no acute distress. HEAD: atraumatic. EYES: Conjunctivae normal. ENT: Mucous membranes pink and moist. NECK: Normal AROM. CHEST: No respiratory distress. Clear to auscultation. HEART: Regular rate and rhythm. No murmur appreciated. Normal peripheral pulses. ABDOMEN: Soft, nontender, nondistended, normal active bowel sounds. MUSCULOSKELETAL: Lumbar spine and sacrum/coccyx tender with palpation, inconsis tently reported. No bony tenderness to right hip. Sitting and walking with walker without difficulty. EXTREMITIES: Normal/baseline range of motion with walker. No edema. SKIN: Right upper back with slightly raised, minimally erythematous soft area c/w cyst as reported. No fluctuance, induration or active drainage. Nontender. Warm, dry, Capillary refill normal. Normal skin turgor. NEURO: No focal deficits. Alert and oriented x3. Gait steady. PSYCH: Chronically slow to respond. Course Course Emergency Course: Patient is aware of diagnosis, understands and agrees to treatment plan. Anticipatory guidance given. Patient agrees to follow-up as directed and is aware of reasons to seek care at the emergency department. Portions of this record may have been created with voice recognition software Level of Care: Express Care Visit Vital Signs Vital signs: Vital Signs Temperature 97.8 F 01/05/25 09:58 Pulse Rate 97 01/05/25 09:58 Respiratory Rate 20 01/05/25 09:58 Blood Pressure 124/74 01/05/25 09:58 Pulse Oximetry 97 01/05/25 09:58 Oxygen Delivery Room Air 01/05/25 09:58 Temperature 97.8 F 01/05/25 09:58 Pulse Rate 97 01/05/25 09:58 Respiratory Rate 20 01/05/25 09:58 Blood Pressure 124/74 01/05/25 09:58 Pulse Oximetry 97 01/05/25 09:58 Oxygen Delivery Room Air 01/05/25 09:58 Transfer Transfered to: [place] Transportation: Other ( Private vehicle) Transfer rationale: Pt is agreeable to transfer. Requests transfer to [facility] via private vehicle. Risks of transportation reviewed with pt including injury, worsening of condition and . v/u. patient's caregiver will be driving pt; Report called to hospital, spoke with Dr Bundy, accepting physician. Pt is in stable condition at time of transfer. Advised to remain NPO and go directly to the hospital. MDM - Fall MDM Narrative Medical decision making narrative: Discussed physical exam findings and xray. Pt is reporting pain with palpation inconsistently to the lumbar spine and tailbone. Advised ER transfer for further evaluation. Differential Diagnosis Differential diagnosis: Likely syncope, compression fracture and other Imaging Data Radiologist's impression: Patient: Luisito Peraza : 1965 MR#: [id number] Age: 59 Acct:[id number] Loc: [facility] ADM Date: 01/05/25Attending Dr: AP and lateral views of the sacrum/coccyx CLINICAL HISTORY: Pain FINDINGS: Moderate L3 compression fracture noted. No other fracture or dislocation seen. Right hip joint space intact. Left hip arthroplasty in place. Soft tissues are unremarkable. SI joints are intact. IMPRESSION: Moderate L3 compression fracture, age-indeterminate. No other fracture or dislocation. Discharge Plan Discharge Clinical Impression: Fall at home, Acute coccygeal pain, Skin cyst Patient Disposition: Acute Care Hospital Condition: Stable Instructions: Antibiotic Form Additional Instructions: Pain: Please follow up with your Primary Care Doctor within 48-72 hours - call for an appointment. Avoid lifting. pushing. pulling, or anything that worsens the pain. Continue to use walker or other assistive devices at all times. Take Tylenol 1000mg every 8 hours Over the counter pain cream like icy/hot or biofreeze, or Salon pas/lidocaine 4% patch. You may apply heat or cold to the area as needed. If you experience any worsening pain, swelling, numbness, weakness, problems with bladder or bowel function, weakness or loss of feeling in one or both of your legs, or any other serious concerns go to the ER immediately. Skin: Cleanse with warm soapy water Warm compresses at least 4 times a day to the site to help expel any additional drainage. Keep your wound covered while draining Tylenol and ibuprofen every 8 hours for pain as needed Follow up with your primary care physician in 3 days for a wound check. Go to the Emergency Department immediately if you develop any of the following symptoms: Fevers, Increased redness, pain, or swelling or any other concerns Patient Language: Kyrgyz Prescriptions: No Action Centrum Silver Ultra Men's [id number] mcg tablet PO qtzflepn-kxeezhtxq-BU 3.5-10,000-1 mg/mL-unit/mL-% solution 4 drp RIGHT EAR Q8H Qty: 10 0RF Rx Instructions: Use until follow up appointment phenytoin sodium extended 100 mg capsule See Rx Instructions .ROUTE .COMPLEX Qty: 60 11RF Dose Instruction: TAKE ONE CAPSULE BY MOUTH 2 TIMES A DAY FOR SEIZURES Rx Instructions: TAKE ONE CAPSULE BY MOUTH 2 TIMES A DAY FOR SEIZURES ethosuximide 250 mg capsule See Rx Instructions .ROUTE .COMPLEX Qty: 60 11RF Dose Instruction: TAKE ONE CAPSULE BY MOUTH 2 TIMES A DAY FOR SEIZURES Rx Instructions: TAKE ONE CAPSULE BY MOUTH 2 TIMES A DAY FOR SEIZURES calcium carbonate [Oyster Shell Calcium 500] 500 mg calcium (1,250 mg) tablet 500 mg PO DAILY loperamide 2 mg capsule 2 mg PO TID PRN (Reason: Diarrhea) dicyclomine 20 mg tablet See Rx Instructions .ROUTE .COMPLEX Qty: 120 0RF Dose Instruction: TAKE ONE TABLET BY MOUTH FOUR TIMES A DAY Rx Instructions: TAKE ONE TABLET BY MOUTH FOUR TIMES A DAY Ear Wax Removal Kit 6.5 % drops 4 drp EACH EAR DAILY PRN (Reason: Ear Wax) Qty: 15 3RF metoprolol succinate 25 mg tablet extended release 24 hr See Rx Instructions .ROUTE .COMPLEX Qty: 100 1RF Dose Instruction: TAKE ONE TABLET BY MOUTH DAILY Rx Instructions: TAKE ONE TABLET BY MOUTH DAILY Centrum Men 8 mg iron- 200 mcg-600 mcg tablet 1 tablet PO DAILY Qty: 240 1RF acetaminophen 325 mg tablet See Rx Instructions .ROUTE .COMPLEX Qty: 30 10RF Dose Instruction: TAKE 1 TABLET BY MOUTH EVERY 6 HOURS NEEDED FOR PAIN. *MAX 4 DOSES/24HRS* Rx Instructions: TAKE 1 TABLET BY MOUTH EVERY 6 HOURS NEEDED FOR PAIN. *MAX 4 DOSES/24HRS* One-A-Day Trubiotics 2 billion cell capsule See Rx Instructions .ROUTE .COMPLEX Qty: 60 2RF Dose Instruction: TAKE TWO CAPSULES BY MOUTH DAILY WITH A MEAL Rx Instructions: TAKE TWO CAPSULES BY MOUTH DAILY WITH A MEAL phenobarbital 32.4 mg tablet 32.4 mg PO HS MDD seizure Qty: 90 1RF Follow-up/Referrals: Marbella Cooper APRN [Other] Time of Disposition: 11:00
== END 2025-01-05 11:06 | disposition short-term general hospital (02) ==
PROVIDERS: Emergency Provider Nurse Practitioner Family
DX: M53.3 Sacrococcygeal disorders, not elsewhere classified (principal); W18.2XXA Fall in (into) shower or empty bathtub, initial encounter; L72.9 Follicular cyst of the skin and subcutaneous tissue, unspecified; G80.9 Cerebral palsy, unspecified; G40.909 Epilepsy, unspecified, not intractable, without status epilepticus
CPT/HCPCS: 72220; 99213; G0463

== ENCOUNTER 2025-01-05 11:33 | Emergency (ER) | payer MEDICARE, SELFPAY ==
--- NOTE | ~2025-01-05 | CT_ITS ---
Noncontrast CT scan of the lumbar spine CLINICAL HISTORY: Back pain TECHNIQUE: Axial noncontrast imaging of the lumbar spine was performed. Sagittal and coronal reformat anita images were constructed. Dose reduction technique was used on this scan by utilizing automated ex posure control and iterative reconstruction technique. The dose-length product (DLP) was 672.09 mGy-c m. FINDINGS: There is moderate compression fracture of L3, probably acute. There is mild compression fra cture of inferior endplate of L1, more age-indeterminate, possibly acute. No subluxation evident. At L1-L2, there is no disc bulge or herniation. No spinal canal stenosis or neural foraminal narrowin g evident. At L2-L3, there is mild disc bulge. There is minimal central canal stenosis. There is moderate to adv anced right neural foraminal narrowing, and moderate left neural foraminal narrowing. L3-L4, there is mild disc bulge and mild facet arthropathy. No central canal stenosis. There is moder ate to advanced bilateral neural foraminal narrowing. At L4-L5, there is disc bulge with facet arthropathy. No central canal stenosis. There is moderate to advanced left neural foraminal narrowing. There is moderate right neural foraminal narrowing. At L5-S1, there is no disc bulge or herniation. No spinal canal stenosis. Probable mild bilateral marly ral foraminal narrowing. Paravertebral soft tissues are unremarkable. Small nonobstructing right renal stones present. Impression: Moderate compression fracture of L3, likely acute. Mild compression fracture of L1, possibly acute. Degenerative spondylosis, as above. Reviewed, dictated and finalized at [facility]. Impression: Moderate compression fracture of L3, likely acute. Mild compression fracture of L1, possibly acute. Degenerative spondylosis, as above.
[2025-01-05 11:36] VITALS: BP 150/96; PULSE 101; RESP 18; TEMP 37; O2SAT 95
--- OUTSIDE RECORDS SUMMARY | 2025-01-05 11:36 | XMS_ITS | Encounter Summary ---
Author Organization [facility] Address [address] [place] [address] Phone Care Team Providers Care Vinyl Welder And Fabricator Name Role Phone Marbella Cooper APRN, CNP Primary Care P rovider Encounter Details Date Type Department Care Team (Late Contact Info) Description 12/12/2022 Telephone [facility] [address] [place] [address] Marbella Cooper APRN, BATTERY TECHNICIAN [address] [place] [address] Social History Tobacco Use Types Packs/Day Years Used Date Smoking Tobacco: Never Smokeless Tobacco: Never Alcohol Use Standard Drinks/Week Comments Never 0 (1 standard drink = 0.6 oz pur e alcohol) Sex and Gender Information Value Date Recorded Sex Assigned at Not on file Legal Sex Male 7:19 PM [employer] Gender Identity Not on file Sexual Orientation Not on file documented as of this encounter Plan of Treatment Upcoming Encounters Date Type Department Care Team ([facility] Contact Info) Description 01/14/2025 1:15 PM CDT Office Visit [facility] [address] [place] [address] Marbella Cooper APRN, BATTERY TECHNICIAN [address] [place] [address] Korey Veliz MD [address] [place] [address] 03/18/2025 8:00 AM CDT [facility] [address] [place] [phone] [facility] 03/25/2025 9:15 AM CDT Office Visit [facility] [address] [place] [phone] Marbella Cooper APRN, BATTERY TECHNICIAN [address] [place] [address] documented as of this encounter Visit Diagnoses Not on filedocumented in this encounter Care Teams Vinyl Welder And Fabricator Relationship Specialty Start Date End Date Marbella Cooper APRN, BATTERY TECHNICIAN [address] [place] [address] PCP - General Advanced Practice Nurse 09/06/22 documented as of this encounter
--- OUTSIDE RECORDS SUMMARY | 2025-01-05 11:36 | XMS_ITS | Encounter Summary ---
Author Organization [facility] Address [address] [place] [address] Phone Care Team Providers Care Museum Specialist Name Role Phone Marbella Cooper APRN, CNP Primary Care P rovider Reason for Visit * Reason Comments Medication Refill Encounter Details Date Type Department Care Team (Late st Contact Info) Description 09/12/2022 Refill [facility] - Primary Care - [place] [address] [place] [phone] Marbella Cooper APRN, CNP [address] [place] [address] Medication Refill Social History Tobacco Use Types Packs/Day Years Used Date Smoking Tobacco: Never Smokeless Tobacco: Never Alcohol Use Standard Drinks/Week Comments Never 0 (1 standard drink = 0.6 oz pur e alcohol) Sex and Gender Information Value Date Recorded Sex Assigned at Not on file Legal Sex Male 7:19 PM STUDENT ACTIVITIES DIRECTOR Gender Identity Not on file Sexual Orientation Not on file COVID-19 Exposure Response Date Recorded In the last 10 days, have yo u been in contact with someone who was confirmed or suspected to have Coronavirus/COVID-19? No / Unsure 09/06/2022 7:41 AM STUDENT ACTIVITIES DIRECTOR documented as of this encounter Miscellaneous Notes [...] Dept 09/06/22 Office Visit Marbella Cooper APRN, SENIOR DIRECTOR OF [employer]LO[employer] [facility] Showing recent visits within past 365 days and meeting all other requirements Future Appointments No visits were found meeting these conditions. Showing future appointments within next 90 days and meeting all other requirements ENT ACTIVITIES DIRECTOR * Telephone Encounter - Mya Will RN - 09/12/2022 12:09 PM CST Last prescribed by Marce Ramirez MD Quantity 30. 30 day supply. ENT ACTIVITIES DIRECTOR documented in this encounter Plan of Treatment Upcoming Encounters Date Type Department Care Team (Late st Contact Info) Description 01/14/2025 1:15 PM CDT Office Visit [facility] [address] [place] [phone] Marbella Cooper APRN, SENIOR DIRECTOR OF [employer] [address] [place] [address] Korey Veliz MD [address] [place] [address] 03/18/2025 8:00 AM CDT Lab [facility] - [facility] Care - [place] [address] [place] [address] [facility] 03/25/2025 9:15 AM CDT Office Visit [facility] - Primary Care - [place] [address] [place] [address] Marbella Cooper APRN, SENIOR DIRECTOR OF [employer] [address] [place] [address] documented as of this encounter Visit Diagnoses Not on filedocumented in this encounter Care Teams Museum Specialist Relationship Specialty Start Date End Date Marbella Cooper APRN, SENIOR DIRECTOR OF [employer] [address] [place] [address] PCP - General Advanced Practice Nurse 09/06/22 documented as of this encounter
--- OUTSIDE RECORDS SUMMARY | 2025-01-05 11:36 | XMS_ITS | Clinical Summary ---
Author Organization [facility] Address [address] [place] [address] Phone Care Team Providers Care Radio Program Checker Name Role Phone Marbella Cooper APRN, CHARLIE [...] Description 12/12/2024 10:30 AM CDT Office Visit [facility] - [facility] - [place] [address] [place] [phone] Brian Siegel, SAIDA Recurrent falls while walking (Primary Dx); Epilepsy undetermined as to focal or generalized (HCC); Chronic tympanomastoiditis, unspecified laterality; Abscess of back Discharge Disposition: Discharged to home or Selfcare 12/11/2024 9:28 AM CDT - 12/11/2024 1:50 PM CDT [facility] [address] [place] [address] Suman Araiza MD Weakness Discharge Disposition: Discharged to home or Selfcare 12/11/2024 Travel 10/17/2024 [facility]phone [facility] [address] [place] [phone] Marbella Cooper APRN, RESEARCH PROGRAMMER Referral 10/16/2024 Refill [facility] - Internal Medicine - [place] [address] [place] [address] Ludwin Pena MD 10/16/2024 Telephone [facility] [address] [place] [address] [phone] Marbelal Cooper APRN, RESEARCH PROGRAMMER 10/14/2024 Telephone [facility] [address] [place] [address] [phone] Marbella Cooper APRN, RESEARCH PROGRAMMER Care Management 10/11/2024 Telephone [facility] [address] [place] [address] [phone] Marbella Cooper APRN, RESEARCH PROGRAMMER Advice Only; Labs Only from Last 3 [...] on file Legal Sex Male 7:19 PM SUPERVISOR [employer]AC[employer] Gender Identity Not on file Sexual Orientation [...] Description 01/14/2025 1:15 PM CDT Office Visit [facility] [address] [place] [address] Marbella Cooper APRN, RESEARCH PROGRAMMER [address] [place] [address] Korey Veliz MD [address] [place] [address] 03/18/2025 8:00 AM CDT Lab [facility] [address] [place] [phone] Lab, [facility] 03/25/2025 9:15 AM CDT Office Visit [facility] [place] [address] [place] [phone] Marbella Cooper APRN, RESEARCH PROGRAMMER [address] [place], [place] [phone] Health Maintenance Due Date Last Done Comments [...] HEPATITIS C ANTIBODY Routine 09/01/2023 8:12 AM SUPERVISOR [employer] Encounter for HCV screening test for low risk patient from Last 3 Months or Most Recently Relevant to Health Maintenance Results * (ABNORMAL) Urinalysis w/ Reflex (12/11/2024 12:00 PM CDT) SPECIFIC GRAVITY 1.015 1.003 - 1.030 12/11/2024 12:49 PM CDT [facility] URINE PH 6.5 5.0 - 9.0 12/11/2024 12:49 PM CDT [facility] WBC ESTERASE Negative Negative 12/11/2024 12:49 PM CDT [facility] NITRITE Negative Negative 12/11/2024 12:49 PM CDT [facility] PROTEIN, RANDOM URINE 30 mg/dL(A) Negative 12/11/2024 12:49 PM CDT [facility] URINE GLUCOSE, QUAL Negative Negative 12/11/2024 12:49 PM CDT [facility] URINE KETONES Negative Negative 12/11/2024 12:49 PM CDT [facility] UROBILINOGEN Normal Normal mg/dL 12/11/2024 12:49 PM CDT [facility] URINE BLOOD Negative Negative esther/ul 12/11/2024 12:49 PM CDT [facility] URINALYSIS COLOR Yellow 12/12/19 12:49 PM CDT [facility] URINALYSIS CLARITY Clear 12/11/2024 12:49 PM CDT [facility] WBC (Urine) 0-5 Negative, 0-5 /hpf 12/11/2024 12:49 PM CDT [facility] URINE RBC'S 0-2 Negative, 0-2 /hpf 12/11/2024 12:49 PM CDT [facility] EPITHELIAL CELLS Negative /lpf 12/12/19 12:49 PM CDT [facility] BACTERIA, URINE Negative Negative /hpf 12/11/2024 12:49 PM CDT [facility] Urine (Straight Catheter) Non-Phlebotomy Collection / Unknown 12/11/2024 12:00 PM CDT 12/11/2024 12:14 PM CDT us Suman Araiza MD URINE ORDERABLES Final Re sult [facility] [address] [place] [address] * CT CERVICAL SPINE WO/ CONTRAST (12/11/2024 [...] Stacy Matthews M.D. TW: ALFREDITO Report ID: [id number] Reading Location: [id number] Procedure Note Stacy Matthews MD - 12/11/2024 [...] Stacy Matthews M.D. TW: ALFREDITO Report ID: [id number] Reading Location: [id number] IMPRESSION: Cervical spondylosis and degenerative disc disease. [...] CT head report us Suman Araiza MD [facility] CT ORDERABLES Final R esult * CT [...] right middle ear cavity. Debris in the rvxp-jwzdpog-nvvz-right EACs. ORBITS: No acute abnormality. Ocular lenses and globes normal in conformation and position. OTHER: No other significant abnormality. THIS IS AN ELECTRONICALLY VERIFIED FINAL REPORT 12/11/2024 11:46 AM - Electronically signed by Jose Kline M.D. YADIRA: YADIRA Report ID: [id number] Reading Location: [id number] Procedure Note Jose Kline MD - 12/11/2024 [...] right middle ear cavity. Debris in the toyd-mjrxiwu-ksyq-right EACs. ORBITS: No acute abnormality. Ocular lenses and globes normal in conformation and position. OTHER: No other significant abnormality. THIS IS AN ELECTRONICALLY VERIFIED FINAL REPORT 12/11/2024 11:46 AM - Electronically signed by Jose Kline M.D. YADIRA: YADIRA Report ID: [id number] Reading Location: [id number] IMPRESSION: 1. No overt CT evidence of acute intracranial process with constellation of findings as detailed above favored as chronic. 2. Correlate with clinical context to include prior relevant imaging for stability of these findings. us Suman Araiza MD IMG CT ORDERABLES Final R esult * TROPONIN I, HIGH SENSITIVITY (HSTRP) (12/11/2024 9:50 AM CDT) [facility] TROPONIN I, HIGH SENSITIVITY- KUNZ <3 <=35 ng/L 12/11/2024 10:29 AM CDT [facility] Comment: High-sensitivity troponin I results are reported in ng/L making the result appear to be 1,000 times higher than the contemporary troponin I value which is reported in ng/ml. Results from Kunz. Blood Venipuncture / Unknown 12/11/2024 9:50 AM CDT 12/11/2024 10:00 AM CDT Suman Araiza MD CHEMISTRY ORDERABLES Pooja l Result Performing Organization Address City/[facility] Co de Phone Number [facility] [address] [place] [address] * Gold Top Tube (12/11/2024 9:50 AM CDT) Blood No Phlebotomy Charged / Unknown 12/11/2024 9:50 AM CDT 12/11/2024 10:03 AM CDT Suman Araiza MD CHEMISTRY ORDERABLES Pooja l Result Performing Organization Address [facility]/ZIP Co de Phone Number [facility] [address] [place] [address] * (ABNORMAL) CBC with Auto Differential (12/11/2024 9:50 AM CDT) [facility] WBC 6.02 4.00 - 12.00 10(3)/mcL 12/11/2024 10:07 AM CDT [facility] RBC 4.60 4.40 - 5.80 10(6)/mcL 12/11/2024 10:07 AM CDT [facility] HEMOGLOBIN (HGB) 14.4 13.0 - 16.5 g/dL 12/11/2024 10:07 AM CDT [facility] HEMATOCRIT (HCT) 43.4 38.0 - 50.0 % 12/11/2024 10:07 AM CDT [facility] MCV 94.3 82.0 - 96.0 fL 12/11/2024 10:07 AM CDT [facility] MCH 31.3 26.0 - 32.0 pg 12/11/2024 10:07 AM CDT [facility] MCHC 33.2 31.0 - 36.0 g/dL 12/11/2024 10:07 AM CDT [facility] PLATELET COUNT 215 140 - 440 10(3)/mcL 12/11/2024 10:07 AM CDT [facility] RDW 12.1 11.8 - 15.5 % 12/11/2024 10:07 AM CDT [facility] MPV 9.0 8.0 - 12.6 fL 12/11/2024 10:07 AM CDT [facility] NEUTROPHILS 69.1(H) 40.0 - 68.0 % 12/11/2024 10:07 AM CDT [facility] LYMPHOCYTES 15.3(L) 19.0 - 49.0 % 12/11/2024 10:07 AM CDT [facility] MONOCYTES 12.1 3.0 - 13.0 % 12/11/2024 10:07 AM CDT [facility] EOSINOPHILS 2.7 0.0 - 8.0 % 12/11/2024 10:07 AM CDT [facility] BASOPHILS 0.8 0.0 - 1.0 % 12/11/2024 10:07 AM CDT [facility] ABSOLUTE NEUTROPHILS 4.16 1.40 - 5.30 10(3)/mcL 12/11/2024 10:07 AM CDT [facility] ABSOLUTE LYMPHOCYTES 0.92 0.90 - 3.30 10(3)/mcL 12/11/2024 10:07 AM CDT [facility] ABSOLUTE MONOCYTES 0.73 0.10 - 0.90 10(3)/mcL 12/11/2024 10:07 AM CDT [facility] ABSOLUTE EOSINOPHIL 0.16 0.00 - 0.50 10(3)/mcL 12/11/2024 10:07 AM CDT [facility] ABSOLUTE BASOPHILS 0.05 0.00 - 0.10 10(3)/mcL 12/11/2024 10:07 AM CDT [facility] NRBC PER 100 WBC 0 12/12/19 10:07 AM CDT [facility] Blood Venipuncture / Unknown 12/11/2024 9:50 AM CDT 12/11/2024 10:00 AM CDT us Suman Araiza MD HEMATOLOGY ORDERABLES Fin al Result [facility] [address] [place] [address] * PT / INR (12/11/2024 9:50 AM CDT) PROTIME-PATIENT 13.8 11.6 - 14.8 sec 12/11/2024 10:33 AM CDT [facility] INR 1.1 0.9 - 1.2 12/11/2024 10:33 AM CDT [facility] Comment: Therapeutic Ranges INR = 2.0-3.0: Venous thromb, atrial fib, pul embolism, tissue heart valve, ami. INR = 2.5-3.5: Mechanical heart valve Critical value for INR is >/= 4.5 Blood Venipuncture / Unknown 12/11/2024 9:50 AM CDT 12/11/2024 10:00 AM CDT us Suman Araiza MD HEMATOLOGY ORDERABLES Fin al Result [facility] [address] [place] [address] * (ABNORMAL) Phenobarbital (12/11/2024 9:50 AM CDT) PHENOBARBITAL 6.8(L) 10.0 - 40.0 mcg/mL 12/11/2024 10:27 AM CDT [facility] Blood Venipuncture / Unknown 12/11/2024 9:50 AM CDT 12/11/2024 10:00 AM CDT us Suman Araiza MD CHEMISTRY ORDERABLES Pooja l Result [facility] [address] [place] [address] * Magnesium (12/11/2024 9:50 AM CDT) MAGNESIUM 2.1 1.6 - 2.6 mg/dL 12/11/2024 10:27 AM CDT [facility] Blood Venipuncture / Unknown 12/11/2024 9:50 AM CDT 12/11/2024 10:00 AM CDT us Suman Araiza MD CHEMISTRY ORDERABLES Pooja l Result Performing Organization Address City/[facility]/ZIP Co de Phone Number [facility] [address] [place] [address] * Dilantin (Phenytoin) [id number] (12/11/2024 9:50 AM CDT) DILANTIN 18.7 10.0 - 20.0 mcg/mL 12/11/2024 10:27 AM CDT [facility] Blood Venipuncture / Unknown 12/11/2024 9:50 AM CDT 12/11/2024 10:00 AM CDT Suman Araiza MD CHEMISTRY ORDERABLES Pooja l Result [facility] [address] [place] [address] * (ABNORMAL) CMP (12/11/2024 9:50 AM CDT) SODIUM 141 136 - 145 mmol/L 12/11/2024 10:27 AM CDT [facility] POTASSIUM 3.9 3.5 - 5.1 mmol/L 12/11/2024 10:27 AM CDT [facility] CHLORIDE 107 98 - 107 mmol/L 12/11/2024 10:27 AM CDT [facility] CO2, VENOUS 26 22 - 30 mmol/L 12/11/2024 10:27 AM CDT [facility] ANION GAP 11.9 <18.0 mmol/L 12/11/2024 10:27 AM CDT [facility] GLUCOSE 103(H) 70 - 99 mg/dL 12/11/2024 10:27 AM CDT [facility] BUN 10 8 - 26 mg/dL 12/11/2024 10:27 AM CDT [facility] CREATININE, BLOOD 0.76 0.70 - 1.30 mg/dL 12/11/2024 10:27 AM CDT [facility] BUN/CREATININE RATIO 13 12 - 20 ratio 12/11/2024 10:27 AM CDT [facility] TOTAL PROTEIN 7.1 6.0 - 8.0 g/dL 12/11/2024 10:27 AM CDT [facility] ALBUMIN 4.2 3.5 - 5.0 g/dL 12/11/2024 10:27 AM CDT [facility] A/G RATIO 1.4 1.0 - 2.2 12/11/2024 10:27 AM CDT [facility] CALCIUM 8.8 8.7 - 10.5 mg/dL 12/11/2024 10:27 AM CDT [facility] T BILI 0.3 0.2 - 1.2 mg/dL 12/11/2024 10:27 AM CDT [facility] SGOT (AST) 17 <43 U/L 12/11/2024 10:27 AM CDT [facility] SGPT (ALT) 17 <56 U/L 12/11/2024 10:27 AM CDT [facility] ALKALINE PHOSPHATASE 120 40 - 150 U/L 12/11/2024 10:27 AM CDT [facility] GFR, ESTIMATED >60 >=60 12/11/2024 10:27 AM CDT [facility] Comment: Creatinine Clearance is the preferred criteria for selecting drug dose adjustments in renally impaired patients. The GFR is provided as additional pertinent clinical information. GFR is reported in mL/min/1.73 sq m. Calculation based on the Chronic Kidney Disease Epidemiology Collaboration (CKD- EPI) equation refit without adjustment for race. GFR, EST. >60 >=60 025 10:27 AM CDT [facility] GFR, EST. NONAFRICAN >60 >=60 12/11/2024 10:27 AM CDT [facility] Blood Venipuncture / Unknown 12/11/2024 9:50 AM CDT 12/11/2024 10:00 AM CDT us Suman Araiza MD CHEMISTRY ORDERABLES Pooja l Result [facility] [address] [place] [address] * EKG 12 LEAD (12/11/2024 9:37 AM CDT) Ventricular Rate 89 BPM EXTERNAL EKG Atrial Rate 89 BPM EXTERNAL EKG P-R Interval 172 ms EXTERNAL EKG QRS Duration 78 ms EXTERNAL EKG Q-T Duration 336 ms EXTERNAL EKG QTC CALCULATION 408 ms EXTERNAL EKG P Bylas 55 degrees EXTERNAL EKG R Bylas 5 degrees EXTERNAL EKG T Bylas 44 degrees EXTERNAL EKG 12/11/2024 9:37 AM CDT Impressions EXTERNAL EKG - 12/11/2024 10:30 PM CDT Normal sinus rhythm Normal ECG No previous ECGs available Confirmed by TARUN BURGER ([id number]) on 12/11/2024 10:30:05 PM Narrative Procedure Note Tarun Burger MD - 12/11/2024 IMPRESSION: Normal sinus rhythm Normal ECG No previous ECGs available Confirmed by TARUN BURGER ([id number]) on 12/11/2024 10:30:05 PM us Suman Araiza MD IMG ECG ORDERABLES Final Result Performing Organization Address City/[facility] Co de Phone Number EXTERNAL EKG * RHYTHM STRIP (12/11/2024 12:00 AM CDT) Only the most recent of2 resultswithin the time period is included. 12/11/2024 us Provider Scan IMG ECG ORDERABLES Final Result Performing Organization Address City/[facility]/ZIP Co de Phone Number RESULTING AGENCY * EKG SCAN (12/11/2024 12:00 AM CDT) 12/11/2024 us Provider Scan IMG ECG ORDERABLES Final Result Performing Organization Address City/[facility] de Phone Number RESULTING AGENCY * PSA SCREEN (03/15/2024 2:09 PM CDT) PSA SCREEN, TOTAL 1.18 <4.00 ng/mL 03/15/2024 4:13 PM CDT [facility] Blood Venipuncture / Unknown 03/15/2024 2:09 PM CDT 03/15/2024 2:09 PM CDT Narrative [facility] - 03/15/2024 4:13 PM CDT The ALINITY Total PSA assay is a Chemiluminescent Microparticle Immunoassay (CMIA) for the quantitative determination of total PSA (both free PSA and PSA complexed to [id number]) in human serum. Total PSA values obtained with different assay methods, including Kunz PSA assays, cannot be used interchangeably. Marbella Cooper APRN, CNP CHEMISTRY ORDER AVANI Final Result [facility] [address] [place] [address] * COLOGUARD (01/20/2024 2:15 PM CDT) Cologuard Negative Negative [facility] Comment: NEGATIVE TEST RESULT. A negative [...] Guzman. et al, N Engl J Med 2014;370(14):4698-0666) The normal value (reference range) for this assay is negative. COLOGUARD RE-SCREENING RECOMMENDATION: Periodic colorectal cancer screening is an important part of preventive healthcare for asymptomatic individuals at average risk for colorectal cancer. Following a negative Cologuard result, the [place] [employer] Society and U.S. Multi-Society Task Force screening guidelines recommend a Cologuard re-screening interval of 3 years. References: [place] [employer] Guideline for Colorectal Cancer Screening: https://www.cancer.org/cancer/yydjx-nmziqx-hupoco/zqeuasmrk-kwnebwdzd-esorrzs/ acs-recommendations.html.; Sherman DK, [place] CR, Day LubinK, Colorectal Cancer Screening: Recommendations for Physicians and Patients from the U.S. Multi-Society Task Force on Colorectal Cancer Screening , Am J Gastroenterology 2017; 112:1222-5879. TEST DESCRIPTION: Composite algorithmic analysis of stool [...] Guzmán et al, N Engl J Med 2014;370(14):6685-6733.) Cologuard may produce a false negative or false positive result (no colorectal cancer or precancerous polyp present at colonoscopy follow up). A negative Cologuard test result does not guarantee the absence of CRC or advanced adenoma (pre-cancer). The current Cologuard screening interval is every 3 years. ([place] [employer] Society and U.S. Multi-Society Task Force). Cologuard performance data in a 10,000 patient pivotal study using colonoscopy as the reference method can be accessed at the following location: www.FlowPlay.Store-Locator.com/results. Additional description of the Cologuard test process, warnings and precautions can be found at www.cologuard.com. Stool 01/20/2024 2:15 PM CDT 01/24/2024 10:17 AM CDT Marbella Cooper APRN, CNP BODY FLUIDS & S TOOLS ORDERABLES Final Result [employer], Flare [address] [place] [address], [employer] [address] [place] [address] * HEPATITIS C ANTIBODY (09/01/2023 8:12 AM SUPERVISOR [employer]OD [employer]ACING) hepatitis C antibody 0.07 <1 S/CO [facility] ARCH [id number] 09/01/2023 11:32 PM SUPERVISOR [employer]OD [employer]ACING [facility] Comment: Signal/Cutoff ratio < 0.79 is Nondetected Signal/Cutoff ratio 0.80-0.99 is Grayzone Signal/Cutoff ratio > 0.99 is Detected Supplemental assays are recommended if signal/cutoff ratio is >/=1.00. Signal/cutoff ratio result >/= 5.00 is 97% predictive of positivity for recombinant immunoblot assay (RIBA) and will be reported to the [place] Department of Public Health as required. Blood Venipuncture / Unknown 09/01/2023 8:12 AM SUPERVISOR [employer]OD PLACING 09/01/2023 8:12 AM SUPERVISOR [employer]ACING Marbella Cooper APRN, CNP CHEMISTRY ORDER AVANI Final Result Performing Organization Address City/State/[facility] Co de Phone Number [facility] [address] [place] [address], from Last 3 Months or Most Recently Relevant to [place] [id number] MEDICARE C [facility] Care Teams Radio Program Checker Relationship Specialty Start Date End Date Marbella Cooper APRN, RESEARCH PROGRAMMER [address] [place] [address] PCP - General Advanced Practice Nurse 09/06/22
--- OUTSIDE RECORDS SUMMARY | 2025-01-05 11:36 | XMS_ITS ---
Author Name Auto Generated, Auto Generated Organization [facility] Address [address] [place] [address] Phone [phone] Care Team Providers Care Field Hockey And Lacrosse Coach Name Role Phone Ousmane Gonzalez Unavailable Bello Radha Unavailable [phone] Cara Montalvo Unavailable [phone] Functional Status No Results Mental Status No Results Allergies and Intolerances Name Onset Date Reaction Severity No Known Allergies (Allergy) MonApr 05 22:41:00 EDT 2017 Medications Medication Directions Start Date End Date Fluad 65yr up(PF)45 mcg(15 mcgx3)/0.5 mL intramuscular syringe 0.5ml SYRINGE (ML) Intramuscular 1 Time Daily for 1 Day document lot # and exp date [facility] May 12 11:30:00 EDT 2017May 13 11:29:00 [...]
--- OUTSIDE RECORDS SUMMARY | 2025-01-05 11:36 | XMS_ITS | Clinical Summary ---
Author Organization [facility] Address [facility] [place] [address] Care Team Providers Care Varnish Mixer Name Role Phone Marbella Cooper NP Primary [...] day 4 Active Centrum Silver Ultra Men's 816-22-305-300 mcg tablet Take 1 tablet by mouth [...] 2:15 PM CDT): Follow up with Dr. uNnez as scheduled for Right chronic tympanomastoiditis Assessment & Plan (08/22/2023 3:18 PM BUSINESS CONSULT): Continue ear drops to the right ear CT temporal bone Referral to Otology based on CT findings, Dr. Nunez Otorrhea of right ear 07/10/2023 Assessment & Plan (08/22/2023 3:19 PM BUSINESS CONSULT): Continue ear drops to the right ear CT temporal bone Referral to Otology based on CT findings, Dr. Nunez Assessment & Plan (08/05/2023 11:28 AM BUSINESS CONSULT): Restart Ciprodex drops to right ear 7 drops into Right EAR, NOT EYE, twice daily for 14 days Ciprofloxacin 500 mg by mouth twice daily for 14 days Follow up in 2-[address] temporal bone if no improvement Assessment & Plan (07/10/2023 12:30 PM BUSINESS CONSULT): Ciprofloxacin 7 drops into RIGHT EAR, NOT EYE, twice daily for 10 days Avoid ear cleaning techniques Avoid water to ears Follow up in 3 weeks for recheck How to Use Ear Drops discussed and Handout provided Chronic diffuse otitis externa of right ear 06/23 Assessment & Plan (08/04/2023 10:43 AM BUSINESS CONSULT): Restart Ciprodex drops to right ear 7 drops into Right EAR, NOT EYE, twice daily for 14 days Ciprofloxacin 500 mg by mouth twice daily for 14 days Follow up in 2-3 weeks Assessment & Plan (07/10/2023 10:16 AM BUSINESS CONSULT): Ciprofloxacin 7 drops into RIGHT EAR, NOT EYE, twice daily for 10 days Avoid ear cleaning techniques Avoid water to ears Follow up in 3 weeks for recheck How to Use Ear Drops discussed and Handout provided Consider round of oral antibiotics if no improvement at follow up Impacted cerumen, bilateral 07/10/2023 Assessment & Plan (07/10/2023 12:30 PM BUSINESS CONSULT): Cleared today Epilepsy undetermined as to focal or generalized 01/14/2021 Encounters Date Type Department Care Team Description 12/23/2024 8:00 AM CDT Office Visit [facility] ([facility]) - [facility] ENT [address] [facility] [address]th [place] [address] [place] [address] Remi Christopher MD Chronic tympanomastoiditis of right [...] Tobacco: Never Tobacco Cessation:Counseling Given: Not Answered [facility] Utilities Answer Date Recorded In the past 12 months has [employer], gas, oil, or water company threatened to [...] often do you attend chur ch or restorationist services? Never 08/01/2024 Do you belong to any clubs o r organizations such as taoist groups, unions, fraternal or athletic groups, or [...] any time in the past [address] [facility], were you homeless or living in a intermediate (including now)? No 08/01/2024 Personal Safety Answer Date Recorded Have you ever been in or are you currently in a harmful physical or emotional relationship or is someone making you feel afraid or unsafe? Denies 07/31/2024 Sex and Gender Information Value Date Recorded Sex Assigned at Not on file Legal Sex Male 7:51 AM BUSINESS CONSULT Gender Identity Not on file Sexual Orientation Not on file Obstetrics History Last Filed Vital Signs Vital Sign Reading Time Taken Comments Blood Pressure 116/74 08/01/2024 7:13 AM BUSINESS CONSULT Pulse 91 08/01/2024 7:13 AM BUSINESS CONSULT Temperature 36.7 C (98.1 F) 08/01/2024 7:13 AM BUSINESS CONSULT Respiratory Rate 19 08/01/2024 7:13 AM BUSINESS CONSULT Oxygen Saturation 98% 08/01/2024 7:13 AM BUSINESS CONSULT Inhaled Oxygen Concentration - - Weight 76.6 kg (168 lb 14.4 oz) 12/23/2024 8:00 AM CDT Height 177.8 cm (5' 10) 07/31/2024 6:17 AM BUSINESS CONSULT Body Mass Index 24.23 07/31/2024 6:17 AM BUSINESS CONSULT Plan of Treatment Health Maintenance Due Date [...] complete this topic Insurance UHC MEDICARE ADVANTAGE [place] [id number] UHC MEDICARE ADVANTAGE [place] [id number] [employer]PA UHC MEDICARE ADVANTAGE [employer] Advance Directives For more information, please contact: [phone] Documents on File Type Date Recorded Patient Bellman Expl anation ADVANCE DIRECTIVE 07/11/2024 11:52 AM * Full Code (Latest Code Status on File) Date Activated Date Inactivated Comments 07/31/2024 12:45 PM 08/01/2024 5:44 PM Care Teams Varnish Mixer Relationship Specialty Start Date End Date Marbella Cooper NP [address] [place] [address] PCP - General Emergency Medicine 01/17/23
--- OUTSIDE RECORDS SUMMARY | 2025-01-05 11:36 | XMS_ITS ---
Author Name Auto Generated, Auto Generated Organization [employer] [facility] Address [address] [place] [address] Phone [phone] Care Team Providers Care Heater Operator Helper Name Role Phone Ousmane Gonzalez Unavailable Bello Radha Unavailable [phone] Cara Montalvo Unavailable Functional Status No Results Mental Status No Results Allergies and Intolerances Name Onset Date Reaction Severity No Known Allergies (Allergy) MonApr 05 22:41:00 EDT 2017 Medications Medication Directions Start Date End Date Fluad 65yr up(PF)45 mcg(15 mcgx3)/0.5 mL intramuscular syringe 0.5ml SYRINGE (ML) Intramuscular 1 Time Daily for 1 Day document lot # and exp date [facility] May 12 11:30:00 EDT 2017May 13 11:29:00 [...]
--- OUTSIDE RECORDS SUMMARY | 2025-01-05 11:36 | XMS_ITS | Referral Summary ---
Author Organization [facility] Address [address] [place] [address] Care Team Providers Care Tray Drier Name Role Phone Marbella Cooper NP Primary Care Provide r Encounters Date Type Department Care Team Description 12/23/2024 8:00 AM CDT Office Visit [facility]) - [facility] ENT [address] [facility] [address] [place] [address] [place] [address] Remi Christopher MD Chronic tympanomastoiditis [...] day 4 Active Centrum Silver Ultra Men's 806-05-141-300 mcg tablet Take 1 tablet by mouth [...] tympanomastoiditis Assessment & Plan (08/22/2023 3:18 PM SECURITY SYSTEMS INSTALLER): Continue ear drops to the right ear CT temporal bone Referral to Otology based on CT findings, Dr. Nunez Otorrhea of right ear 07/10/2023 Assessment & Plan (08/22/2023 3:19 PM SECURITY SYSTEMS INSTALLER): Continue ear drops to the right ear CT temporal bone Referral to Otology based on CT findings, Dr. Nunez Assessment & Plan (08/05/2023 11:28 AM SECURITY SYSTEMS INSTALLER): Restart Ciprodex drops to right ear 7 drops into Right EAR, NOT EYE, twice daily for 14 days Ciprofloxacin 500 mg by mouth twice daily for 14 days Follow up in 2-[address] temporal bone if no improvement Assessment & Plan (07/10/2023 12:30 PM SECURITY SYSTEMS INSTALLER): Ciprofloxacin 7 drops into RIGHT EAR, NOT EYE, twice daily for 10 days Avoid ear cleaning techniques Avoid water to ears Follow up in 3 weeks for recheck How to Use Ear Drops discussed and Handout provided Chronic diffuse otitis externa of right ear 06/23 Assessment & Plan (08/04/2023 10:43 AM SECURITY SYSTEMS INSTALLER): Restart Ciprodex drops to right ear 7 drops into Right EAR, NOT EYE, twice daily for 14 days Ciprofloxacin 500 mg by mouth twice daily for 14 days Follow up in 2-3 weeks Assessment & Plan (07/10/2023 10:16 AM SECURITY SYSTEMS INSTALLER): Ciprofloxacin 7 drops into RIGHT EAR, NOT EYE, twice daily for 10 days Avoid ear cleaning techniques Avoid water to ears Follow up in 3 weeks for recheck How to Use Ear Drops discussed and Handout provided Consider round of oral antibiotics if no improvement at follow up Impacted cerumen, bilateral 07/10/2023 Assessment & Plan (07/10/2023 12:30 PM SECURITY SYSTEMS INSTALLER): Cleared today Epilepsy undetermined as to focal or generalized 01/14/2021 Immunizations Immunization Administration Dates Next Due Influenza, Quadrivalent, Spl it, Preservative Free, Intramuscular 04/12/2023 Influenza, Trivalent, Adjuvanted, Intramuscular 04/03/2017 Influenza, Trivalent, IM (MDV) 04/09/2014,2012 TD Preservative Free 09/11/2000 Tdap 09/14/2010 Social History Tobacco Use Types Packs/Day Years Used Date Smoking Tobacco: Never Smokeless Tobacco: Never Tobacco Cessation:Counseling Given: Not Answered [facility] Utilities Answer Date Recorded In the past [...] often do you attend chur ch or mormonism services? Never 08/01/2024 Do you belong to any clubs o r organizations such as mosque groups, unions, fraternal or athletic groups, or [...] any time in the past 12 m [facility], were you homeless or living in a alf (including now)? No 08/01/2024 Personal Safety Answer Date Recorded Have you ever been in or are you currently in a harmful physical or emotional relationship or is someone making you feel afraid or unsafe? Denies 07/31/2024 Sex and Gender Information Value Date Recorded Sex Assigned at Not on file Legal Sex Male 7:51 AM SECURITY SYSTEMS INSTALLER Gender Identity Not on file Sexual Orientation Not on file Last Filed Vital Signs Vital Sign Reading Time Taken Comments Blood Pressure 116/74 08/01/2024 7:13 AM SECURITY SYSTEMS INSTALLER Pulse 91 08/01/2024 7:13 AM SECURITY SYSTEMS INSTALLER Temperature 36.7 C (98.1 F) 08/01/2024 7:13 AM SECURITY SYSTEMS INSTALLER Respiratory Rate 19 08/01/2024 7:13 AM SECURITY SYSTEMS INSTALLER Oxygen Saturation 98% 08/01/2024 7:13 AM SECURITY SYSTEMS INSTALLER Inhaled Oxygen Concentration - - Weight 76.6 kg (168 lb 14.4 oz) 12/23/2024 8:00 AM CDT Height 177.8 cm (5' 10) 07/31/2024 6:17 AM SECURITY SYSTEMS INSTALLER Body Mass Index 24.23 07/31/2024 6:17 AM SECURITY SYSTEMS INSTALLER Plan of Treatment Not on file Insurance [facility] MEDICARE ADVANTAGE [facility] Address: [facility] [address] [place] [address] [facility] MEDICARE ADVANTAGE [facility] Address: [address] [address] [place] [address] IDPA [facility] MEDICARE ADVANTAGE IDPA Advance Directives For more information, please contact: [phone] Documents on File Type Date Recorded Patient Commercial Specialist Expl anation ADVANCE DIRECTIVE 07/11/2024 11:52 AM * Full Code (Latest Code Status on File) Date Activated Date Inactivated Comments 07/31/2024 12:45 PM 08/01/2024 5:44 PM Care Teams Tray Drier Relationship Specialty Start Date End Date Marbella Cooper NP [address] [place] [address] PCP - General Emergency Medicine 01/17/23
[2025-01-05 11:39] VITALS: BP 150/96; O2SAT 95
[2025-01-05 11:45] VITALS: BP 129/82; PULSE 99; RESP 27
--- NOTE | 2025-01-05 11:47 | ED_ITS ---
HPI - General Adult General Chief complaint: Fall Stated complaint: fall Time Seen by Provider: 01/05/25 11:34 History of Present Illness HPI narrative: Patient is a 59-year-old male presents emergency department for evaluation after having a fall last night. Patient does have a history of CP and seizures. Patient does live at a [facility]dc. Staff reported he did have a fall last night but denies any pain or injury. Staff states the patient has been able to ambulate at his baseline last night and this morning. They reported that he did begin complaining of some lower back pain today. Patient initially presented to the urgent care was found to have an L3 compression fracture that was age indeterminate. Patient denies striking his head denies any loss of consciousness. Staff says the patient is at his typical neuro baseline. Related Data Home Medications ?Medication ?Instructions ?Recorded ?Confirmed ?Last Taken ?Type calcium carbonate (Oyster Shell 500 mg PO DAILY 08/04/21 07/04/23 Unknown History Calcium 500) loperamide 2 mg capsule 2 mg PO TID PRN Diarrhea 06/27/22 07/04/23 Unknown History dgizzajr-mf-pzcjo 300 mcg-K 60 tablet PO 01/05/25 Unknown History mcg-lycop 600 mcg-lutein 300 mcg tablet (Centrum Silver Ultra Men's) Allergies Allergy/AdvReac Type Severity Reaction Status Date / Time No Known Allergies Allergy Verified 01/05/25 10:06 Review of Systems Review of Systems: All systems reviewed & are unremarkable except as noted in HPI and below PMFSH Past Medical History Medical History Cerebral palsy Hip fracture, left Left spastic hemiparesis Seizure disorder Tachycardia Surgical History Surgical History Hx of colonoscopy 2019, repeat in 10 years S/P total hip arthroplasty Social History Social History Social History: Single Smoking status: Never smoker Second hand tobacco smoke exposure: No Alcohol intake: never Substance use: never Substance use type: does not use Lack of Transportation: No Lack of Food: Never True Current Housing: I Have Housing Concerned About Future Housing: No Difficulty Paying Gas/Electric Bills: No Difficulty Paying for Meds: No Currently Unemployed: No Education: High School Diploma/GED Difficulty w/ Childcare or Family Care: No Living arrangements: assisted living Occupation/Education: occupation Gender identity (if verbalized by the patient): Male Sexual Orientation (if Verbalized by the Patient): Straight or Heterosexual Spiritual care concerns: No Exam Narrative: APPEARANCE: Well-appearing HEAD: normocephalic, atraumatic. EYES: PERRLA/EOMI, conjunctivae clear. NOSE: Normal no drainage EARS:TMS clear with good light reflex. THROAT: Pharynx clear, no exudate. NECK: Supple. No adenopathy, no masses. RESPIRATORY: Airway patent, respirations nonlabored. Clear to auscultation bilaterally, no rales, rhonchi, wheezing. CARDIOVASCULAR: Regular rate and rhythm without murmurs rubs or gallops. ABDOMINAL: Soft, nontender, nondistended, normal bowel sounds MUSCULOSKELETAL: Mild lumbar tenderness to palpation with no deformity, no step-offs NEURO: Alert. Cranial nerves II through XII intact. Good gait. Good coordination SKIN: Warm, dry. Normal Color Course Vital Signs Vital signs: Vital Signs Temperature 98.6 F 01/05/25 11:36 Pulse Rate 101 H 01/05/25 11:36 Respiratory Rate 18 01/05/25 11:36 Blood Pressure 150/96 H 01/05/25 11:36 Pulse Oximetry 95 01/05/25 11:36 Oxygen Delivery Room Air 01/05/25 11:36 Temperature 98 F 01/05/25 13:24 Pulse Rate 84 01/05/25 13:24 Respiratory Rate 18 01/05/25 13:24 Blood Pressure 136/85 01/05/25 13:24 Pulse Oximetry 98 01/05/25 13:24 Oxygen Delivery Room Air 01/05/25 11:36 Medical Decision Making MDM Narrative Medical decision making narrative: 59-year-old male present to the emergency department for further evaluation a suspected back injury. Patient did have outpatient images earlier today that showed possible L3 fracture indeterminate age. CT scan does confirm a L3 compression fracture that appears to be acute L1 compression fracture that is chronic. Neurologically intact. Patient is able to ambulate at his baseline with a walker with no complaints of discomfort. Patient will be provided Tylenol and ibuprofen for additional pain control and patient was provided outpatient follow-up with Neurosurgery. Caregiver was updated on the results of the workup and plan for treatment, discharge and outpatient follow-up. Differential Diagnosis Differential Diagnosis: Acute lumbar fracture, chronic lumbar fracture Vital Signs Vital Signs: Vital Signs Temperature 98.6 F 01/05/25 11:36 Pulse Rate 101 H 01/05/25 11:36 Respiratory Rate 18 01/05/25 11:36 Blood Pressure 150/96 H 01/05/25 11:36 Pulse Oximetry 95 01/05/25 11:36 Oxygen Delivery Room Air 01/05/25 11:36 Temperature 98 F 01/05/25 13:24 Pulse Rate 84 01/05/25 13:24 Respiratory Rate 18 01/05/25 13:24 Blood Pressure 136/85 01/05/25 13:24 Pulse Oximetry 98 01/05/25 13:24 Oxygen Delivery Room Air 01/05/25 11:36 Imaging Data Radiologist's impression: Impressions Lumbar Spine CT 01/05/25 12:30 Impression: Moderate compression fracture of L3, likely acute. Mild compression fracture of L1, possibly acute. Degenerative spondylosis, as above. Discharge Plan Discharge Clinical Impression: Closed compression fracture of L3 vertebra Patient Disposition: NH Senior Care/Asst Living Condition: Stable Instructions: Antibiotic Form, Thoracolumbar Fracture (ED) Additional Instructions: Tylenol and ibuprofen for pain control. Have close follow-up with your primary care physician and with neurosurgery. Patient Language: Maltese Prescriptions: New acetaminophen [Tylenol] 325 mg tablet 325 mg PO Q4-6H PRN (Reason: pain) Qty: 30 0RF ibuprofen 400 mg tablet 400 mg PO TID PRN (Reason: pain) Qty: 30 0RF No Action Centrum Silver Ultra Men's 393-08-220-300 mcg tablet PO vnzwqnco-cimvhkpyn-FW 3.5-10,000-1 mg/mL-unit/mL-% solution 4 drp RIGHT EAR Q8H Qty: 10 0RF Rx Instructions: Use until follow up appointment phenytoin sodium extended 100 mg capsule See Rx Instructions .ROUTE .COMPLEX Qty: 60 11RF Dose Instruction: TAKE ONE CAPSULE BY MOUTH 2 TIMES A DAY FOR SEIZURES Rx Instructions: TAKE ONE CAPSULE BY MOUTH 2 TIMES A DAY FOR SEIZURES ethosuximide 250 mg capsule See Rx Instructions .ROUTE .COMPLEX Qty: 60 11RF Dose Instruction: TAKE ONE CAPSULE BY MOUTH 2 TIMES A DAY FOR SEIZURES Rx Instructions: TAKE ONE CAPSULE BY MOUTH 2 TIMES A DAY FOR SEIZURES calcium carbonate [Oyster Shell Calcium 500] 500 mg calcium (1,250 mg) tablet 500 mg PO DAILY loperamide 2 mg capsule 2 mg PO TID PRN (Reason: Diarrhea) dicyclomine 20 mg tablet See Rx Instructions .ROUTE .COMPLEX Qty: 120 0RF Dose Instruction: TAKE ONE TABLET BY MOUTH FOUR TIMES A DAY Rx Instructions: TAKE ONE TABLET BY MOUTH FOUR TIMES A DAY Ear Wax Removal Kit 6.5 % drops 4 drp EACH EAR DAILY PRN (Reason: Ear Wax) Qty: 15 3RF metoprolol succinate 25 mg tablet extended release 24 hr See Rx Instructions .ROUTE .COMPLEX Qty: 100 1RF Dose Instruction: TAKE ONE TABLET BY MOUTH DAILY Rx Instructions: TAKE ONE TABLET BY MOUTH DAILY Centrum Men 8 mg iron- 200 mcg-600 mcg tablet 1 tablet PO DAILY Qty: 240 1RF acetaminophen 325 mg tablet See Rx Instructions .ROUTE .COMPLEX Qty: 30 10RF Dose Instruction: TAKE 1 TABLET BY MOUTH EVERY 6 HOURS NEEDED FOR PAIN. *MAX 4 DOSES/24HRS* Rx Instructions: TAKE 1 TABLET BY MOUTH EVERY 6 HOURS NEEDED FOR PAIN. *MAX 4 DOSES/24HRS* One-A-Day Trubiotics 2 billion cell capsule See Rx Instructions .ROUTE .COMPLEX Qty: 60 2RF Dose Instruction: TAKE TWO CAPSULES BY MOUTH DAILY WITH A MEAL Rx Instructions: TAKE TWO CAPSULES BY MOUTH DAILY WITH A MEAL phenobarbital 32.4 mg tablet 32.4 mg PO HS MDD seizure Qty: 90 1RF Follow-up/Referrals: Giorgi Jacobs MD [Physician] - PHYSICIAN,BINDERY OPERATOR [Non-Staff] - Stand Alone Forms: Work/School Release IP
--- OUTSIDE RECORDS SUMMARY | 2025-01-05 11:54 | XMS_ITS ---
Author Name Auto Generated, Auto Generated Organization [employer] [facility] Address [address] [address] Phone [phone] Care Team Providers Care Instructor Hairspring Name Role Phone Ousmane Gonzalez Unavailable Bello Radha Unavailable [phone] Cara Montalvo Unavailable Functional Status No Results Mental Status No Results Allergies and Intolerances Name Onset Date Reaction Severity No Known Allergies (Allergy) MonApr 05 22:41:00 EDT 2017 Medications Medication Directions Start Date End Date Fluad 65yr up(PF)45 mcg(15 mcgx3)/0.5 mL intramuscular syringe 0.5ml SYRINGE (ML) Intramuscular 1 Time Daily for 1 Day document lot # and exp date [facility] May 12 11:30:00 EDT 2017May 13 [...]
--- OUTSIDE RECORDS SUMMARY | 2025-01-05 11:54 | XMS_ITS ---
Author Name Auto Generated, Auto Generated Organization [employer] [facility] Address [address] [address] Phone [phone] Care Team Providers Care Management Developer Name Role Phone Ousmane Gonzalez Unavailable [phone] Bello Radha Unavailable [phone] Cara Montalvo Unavailable [phone] Functional Status No Results Mental Status No Results Allergies and Intolerances Name Onset Date Reaction Severity No Known Allergies (Allergy) MonApr 05 22:41:00 EDT 2017 Medications Medication Directions Start Date End Date Fluad 65yr up(PF)45 mcg(15 mcgx3)/0.5 mL intramuscular syringe 0.5ml SYRINGE (ML) Intramuscular 1 Time Daily for 1 Day document lot # and exp date [facility] May 12 11:30:00 EDT 2017May 13 [...]
[2025-01-05 12:00] VITALS: BP 126/80; PULSE 92; RESP 16
[2025-01-05 13:24] VITALS: BP 136/85; PULSE 84; RESP 18; TEMP 36.6; O2SAT 98
== END 2025-01-05 13:57 | disposition home or self-care (01) ==
PROVIDERS: Emergency Provider Emergency Medicine
DX: S32.030A Wedge compression fracture of third lumbar vertebra, initial encounter for closed fracture (principal); G80.1 Spastic diplegic cerebral palsy; G40.909 Epilepsy, unspecified, not intractable, without status epilepticus; Z96.649 Presence of unspecified artificial hip joint; Z79.899 Other long term (current) drug therapy; W18.2XXA Fall in (into) shower or empty bathtub, initial encounter
CPT/HCPCS: 72131; 99284